=== PATIENT | female | born 1970 | race Caucasian/White ===

== ENCOUNTER 2018-03-26 13:42 | Outpatient (REF) | payer MEDICAID, SELFPAY ==
--- NOTE | 2018-03-26 13:20 | PAPFT_PTH ---
PATIENT: Madelyn Clayton LOC: [facility] U#:[id number] AGE/SX: 47/F ROOM: RE03/26/[address]: Leona Wood : 1970 BED: DIS: 03/26/2018 SPEC #: [id number] RECD: 03/26/18 17:43 STATUS: ALEX RETrace #: [id number] FLOR: 03/26/18 13:[address]: Leona Wood DEPT: [facility] Cytology RECD BY: Luh Sprague ENTERED: 03/26/18 17:43 SP TYPE: PAPFT OTHR DR: Reva Valero Tissues: 1 - CX/ENDOCX FOR PAP SMEARS Procedures: PAP THIN PREP/[facility] Screening HPV DNA PROBE Comments: [id number]
== END 2018-03-26 14:02 ==
LOC: LBN 13:42
PROVIDERS: PCP Nurse Practitioner Family; Visit Provider Obstetrics & Gynecology Gynecology
DX: Z12.4 Encounter for screening for malignant neoplasm of cervix (principal); Z11.51 Encounter for screening for human papillomavirus (HPV)
CPT/HCPCS: 88142; 87624

== ENCOUNTER 2018-06-03 00:57 | Outpatient (CLI) | payer MEDICAID, SELFPAY ==
--- NOTE | 2018-06-03 12:20 | DI.MAMMO_ITS ---
SYMPTOMS/DIAGNOSIS: SCREENING, Z12.31, PREVENTATIVE CARE, Z00.00 BILATERAL SCREENING MAMMOGRAM: Mammograms were interpreted according to the usual protocol including computer analysis with CAD system, tomosynthesis and C view imaging. Comparison is made with exams from 2014 from [facility] and 2016 and 2017 from [facility]. The breasts are composed of heterogeneously dense fibroglandular tissue, breast density category C. A small area of nodularity is again seen in the left breast inferolaterally. No suspicious masses or suspicious microcalcifications are seen in either breast. IMPRESSION: Category 2C, negative mammogram with benign findings. Yearly screening mammography is recommended. SA ASSESSMENT OF FINDINGS: Negative with benign findings. Category 2. Patient will receive a letter notifying them of these results. Bi-RADS category C. The breasts are heterogeneously dense, which may obscure small masses.
== END 2018-06-03 01:17 ==
PROVIDERS: PCP Nurse Practitioner Family; Visit Provider Nurse Practitioner Family
DX: Z12.31 Encounter for screening mammogram for malignant neoplasm of breast (principal); Z00.00 Encounter for general adult medical examination without abnormal findings
CPT/HCPCS: 77063; 77067

== ENCOUNTER 2019-03-29 14:04 | Outpatient (CLI) | payer MEDICAID, SELFPAY ==
[2019-03-30 11:34] LABS: HIV-1/2 Ag & Ab Screen Negative (NEGAT)
[2019-03-30 15:43] LABS: Syphilis Total Ab w/Reflex Nonreactive (Nonreactive)
== END 2019-03-29 14:24 ==
PROVIDERS: PCP Nurse Practitioner Family; Visit Provider Obstetrics & Gynecology Gynecology
DX: Z11.3 Encounter for screening for infections with a predominantly sexual mode of transmission (principal); Z11.4 Encounter for screening for human immunodeficiency virus [HIV]; Z00.00 Encounter for general adult medical examination without abnormal findings
CPT/HCPCS: 36415; 87389; 86780

== ENCOUNTER 2019-03-29 16:11 | Outpatient (REF) | payer MEDICAID, SELFPAY ==
[2019-03-31 13:53] LABS: Chlamydia Result Negative (Negative); GC Result Negative (Negative); Specimen Description CERVIX
== END 2019-03-29 16:31 ==
LOC: LBN 16:11
PROVIDERS: PCP Nurse Practitioner Family; Visit Provider Obstetrics & Gynecology Gynecology
DX: Z11.3 Encounter for screening for infections with a predominantly sexual mode of transmission (principal)
CPT/HCPCS: 87491; 87591

== ENCOUNTER 2019-05-06 12:07 | Outpatient (REF) | payer MEDICAID, SELFPAY ==
[2019-05-06 19:03] LABS: HCT 35.7 % (36.0-46.0); HGB 11.3 g/dL (12.0-15.5); Mean Corp. HGB Concentration 31.7 g/dL (32.0-36.0); Mean Corpuscular Hemoglobin 26.3 pg (27.0-33.0); Mean Platelet Volume 10.1 fL (8.0-11.0); Platelet Count 343 x1000/uL (130-400); RBC Distribution Width 12.6 % (11.7-14.6); White Blood Cell Count 4.14 k/cumm (4.4-10.8)
[2019-05-06 19:21] LABS: ALT 17 U/L (14-59); AST 10 U/L (15-37); Albumin 4.2 g/dL (3.4-5.0); Alkaline Phosphatase 57 U/L (46-116); Anion Gap 9.8 mmol/L (3-11); BUN 10 mg/dL (7-18); Bilirubin, Total 0.4 mg/dL (0.2-1.0); CO2 28.2 mmol/L (21.0-32.0); CREATININE 0.68 mg/dL (0.55-1.02); Calcium 9.1 mg/dL (8.5-10.1); Calculated LDL 150 mg/dL; Chloride 102 mmol/L (98-107); Cholesterol 227 mg/dL (<200); Glucose 85 mg/dL (74-106); HDL Cholesterol 67 mg/dL (40-60); Potassium 4.2 mmol/L (3.5-5.1); Sodium 140 mmol/L (136-145); Total Protein 7.1 g/dL (6.4-8.2); Triglyceride 50 mg/dL (<150)
== END 2019-05-06 12:27 ==
LOC: NCHCN 12:07
PROVIDERS: PCP Nurse Practitioner Family; Visit Provider Nurse Practitioner Family
DX: R53.83 Other fatigue (principal); Z13.220 Encounter for screening for lipoid disorders; Z00.00 Encounter for general adult medical examination without abnormal findings
CPT/HCPCS: 80053; 80061; 85027

== ENCOUNTER 2020-01-26 00:12 | Outpatient (CLI) | payer MEDICAID, SELFPAY ==
--- NOTE | 2020-01-26 | DI.MAMMO_ITS ---
EXAM: MAMMO SCREENING CLINICAL HISTORY: SCREENING, Z12.39 TECHNIQUE: Mammograms were interpreted according to the usual protocol including computer analysis w [employer] CAD system, tomosynthesis and C-view imaging. COMPARISON: FINDINGS: The breasts are heterogeneously dense. No dominant mass or clumped microcalcification is identified in either breast. The current examination is compared with previous examinations including June 03 and there is increased prominence of an area of asymmetric density projected in the central porti on of the left breast on CC and MLO projections. Additional mammographic views of this area are requ ested to include CC and MLO spot compression views of the left breast. No other significant change seen. IMPRESSION: Additional mammographic views of the left breast are requested as described above. Breast ultrasound may be indicated as well depending on the results of the additional mammographic views. BI-RADS Cat 0 - Assessment Incomplete: Need additional imaging evaluation Breast Density - Category C - Heterogeneously dense
== END 2020-01-26 00:32 ==
PROVIDERS: PCP Nurse Practitioner Family; Visit Provider Nurse Practitioner Family
DX: Z12.31 Encounter for screening mammogram for malignant neoplasm of breast (principal); R92.2 Inconclusive mammogram
CPT/HCPCS: 77063; 77067

== ENCOUNTER 2020-02-04 04:15 | Outpatient (CLI) | payer MEDICAID, SELFPAY ==
--- NOTE | 2020-02-04 | DI.US_ITS ---
EXAM: MG MAMMO SCREEN CALL BACK UNI CLINICAL HISTORY: F/U MAMMO, ASYMMETRIC DENSITY LT. TECHNIQUE: Craniocaudal and mediolateral oblique Full Field Digital Mammography views of the left br east with Computer Aided Diagnosis followed by Tomosynthesis and left breast ultrasound. COMPARISON: Comparison with prior examinations. FINDINGS: Mammography/Tomosynthesis: Masses/Architectural Distortion: None seen. Stable nodular density in the posterior left breast. Thi s area has been present on multiple previous examinations and is unchanged. Microcalcifictions: No suspicious pleomorphic-type are seen. Skin Thickening/Nipple Retraction: None. Left breast US: Echotexture: Normal appearance of the glandular tissue. Shadowing: No suspicious foci. Cyst: Cysts are seen at the 8 o'clock and 9 o'clock positions of the left breast. Solid lesions: None seen. Ductal dilation: None. IMPRESSION: 1. No evidence of malignancy is noted. 2. A six-month follow-up left mammogram is recommended for further evaluation. 3. The findings were discussed with the patient on the date of the examination. BI-RADS Category 3 - 6 month - Probably Benign Finding: Recommend follow-up mammography in 6 months Breast Density - Category C - Heterogeneously dense The mammogram demonstrates the patient's breast tissue is dense. Dense breast tissue is very common a nd is not abnormal but dense breast tissue can make it harder to find cancer on a mammogram. Also, de nse breast tissue may increase their breast cancer risk. This information about [facility] was provided to the patient to raise their awareness. Use this report when you speak wi th the patient about their risks for breast cancer, which includes their family history. At that time , you may recommend for more screening tests (Ultrasound or MRI) as they might be useful based on the ir risk. A negative radiographic report should not delay biopsy if a dominant or clinically suspicious mass is present. Up to ten percent of cancers are not identified on mammography. A negative report may reinforce clinical impression. Adenosis and dense breasts may obscure an underlying neoplasm. False positive reports average 6 to 10%. Patient will receive a letter notifying them of these results.
== END 2020-02-04 04:35 ==
PROVIDERS: PCP Nurse Practitioner Family; Visit Provider Nurse Practitioner Family
DX: R92.8 Other abnormal and inconclusive findings on diagnostic imaging of breast (principal); R92.2 Inconclusive mammogram
CPT/HCPCS: 76642; 77063; 77067

== ENCOUNTER 2020-03-03 07:42 | Day surgery (SDC) | payer MEDICAID, SELFPAY ==
[2020-03-03 07:53] VITALS: BP 110/64; PULSE 69; RESP 19; TEMP 36.5; O2SAT 97
[2020-03-03] MEDS: Lactated Ringers 1,000 ML 80 ML IV (08:21)
--- NOTE | 2020-03-03 08:47 | W.PM.DSUDISC ---
Discharge Plan Disposition Patient Disposition: HOME Condition: Good Discharge Details Reason For Visit: Colonoscopy Attending Provider: Yancy Aragon Primary Care Provider: Alexis Melgar Home Meds and New Rx's Prescriptions: Continued phenazopyridine [Pyridium] 200 mg tablet 200 mg PO TID PRNRF: 0 lamotrigine [Lamictal] 25 MG tablet 25 mg PO 3 tabs daily RF: 0 cholecalciferol (vitamin D3) 10,000 UNIT capsule 10,000 unit PO DAILY RF: 0 nitrofurantoin macrocrystal [Macrodantin] 50 mg capsule 50 mg PO DAILY PRN (Reason: UTI prevention) Qty: 30 RF: 12 cyclobenzaprine 5 mg tablet 5 mg PO QHS PRN (Reason: muscle spasm) Qty: 30 RF: 0 docusate sodium [Colace] 100 mg capsule 100 mg PO PRN RF: 0 clonazepam 0.5 mg tablet,disintegrating 0.5 mg PO Q8H PRN Qty: 10 RF: 0 estradiol [Vagifem] 10 mcg tablet 10 mcg VG .COMPLEX Qty: 30 RF: 5 omega-3 fatty acids Capsule 500 mg PO DAILY RF: 0 escitalopram oxalate [Lexapro] 20 mg Tablet 20 mg PO DAILY RF: 0 Discharge Instructions Additional Instructions: Findings: Your colonoscopy was normal. Follow up: Plan for routine screening in 10 years or sooner if symptoms arise. Please call if you develop: fevers >101.5 Nausea or Vomiting Abdominal pain that is not transient DAY SURGERY UNIT POST COLONOSCOPY INSTRUCTIONS 1. Because there will be medication in your system for the next 24 hours, you may feel a little sleepy. Your coordination will be affected. Therefore: a. Do not drive or operate dangerous equipment for 24 hours. b. Do not drink alcohol beverages for 24 hours (not even beer). c. Plan to go home and rest for the day. 2. Generally there are no restrictions on your activity after a day or so has gone by, but you may feel a bit fatigued for a few days. 3 After you arrive home you may have a light meal and return to a normal diet as you can tolerate it without feeling sick to your stomach. 4. After surgery, you may feel pain or discomfort. This should be only transient, but if it persists please contact your doctor. 5. If there are any questions regarding the findings of your procedure, please feel free to contact your doctor. 6. If you are unable to contact your doctor with a problem, contact the hospital at [phone]. 7. Continue all your regular medications unless directed otherwise. I understand the above instructions and have no questions. Signature of Patient or Responsible Adult Escort Date/Time Name of Responsible Adult Escort Signature of Nurse Date/Time Stand Alone Forms: Gail Stark (SUSHILU) Activity:: Activity as Tolerated Diet:: As Tolerated Discharge Orders Discharge Orders: Discharge Order (Routine); Ordered 03/03/20 Ordered By: Yancy Aragon DS: Diagnosis Discharge Diagnosis (1) Normal colonoscopy: Status: Acute
--- NOTE | 2020-03-03 08:48 | W.COLOREPORT ---
Date of service: 03/03/20 Time of Service: 09:41 Colonoscopy Report Date of procedure: 03/03/20 Pre-op diagnosis general: Screening Post-op diagnosis procedure note: other (Normal colon) Procedure: Colonoscopy Surgeon: Yancy Aragon Anesthesia proc note operative: MAC Indications: This 49 year old woman presents for her first colonoscopy. No FH of colon cancer. Chronic IBS symptoms. Procedure Description: The patient was placed in the left Chris position. Propofol was titrated to sedation. Digital rectal examination revealed no abnormalities. The scope was advanced to the cecum without difficulty. The ileocecal valve and appendiceal orifice were clearly identified. The prep was good. The scope was slowly withdrawn over the course of greater than 6 minutes with no abnormalities seen in the ascending, transverse, descending, sigmoid colon or rectum including on retroflexed view. The patient tolerated the procedure well and was stable to recovery. Plan for routine screening colonoscopy in 10 years or sooner if symptoms indicate.
[2020-03-03 09:50] VITALS: BP 89/53; PULSE 56; RESP 16; TEMP 36.6; O2SAT 100
== END 2020-03-03 10:10 | disposition home or self-care (01) ==
PROVIDERS: PCP Nurse Practitioner Family; Visit Provider Surgery
PROC: 0DJD8ZZ Inspection of Lower Intestinal Tract, Via Natural or Artificial Opening Endoscopic (ICD-10-PCS; CPT 45378; principal; 2020-03-03 09:00)
DX: Z12.11 Encounter for screening for malignant neoplasm of colon (principal)
CPT/HCPCS: 45378

== ENCOUNTER 2020-06-05 14:54 | Outpatient (REF) | payer MEDICAID, SELFPAY ==
[2020-06-05 18:37] LABS: HCT 39.9 % (36.0-46.0); HGB 13.2 g/dL (11.2-15.7); MCH 30.1 pg (27.0-33.0); MCHC 33.1 % (32.0-36.0); MCV 91.1 fL (80-95); MPV 10.1 fL (8.0-11.0); Platelet Count 267 10^3/uL (130-400); RBC 4.38 10^6/uL (3.93-5.22); RDW 12.3 % (11.7-14.6); RDW-SD 41.1 fL; WBC 4.06 10^3/uL (4.4-10.8)
[2020-06-05 19:08] LABS: Iron 110 ug/dL (50-170); Total Iron Binding Capacity 359 ug/dL (250-450); Transferrin Sat 31 % (15-50)
[2020-06-05 19:11] LABS: ALT 19 U/L (14-59); AST 15 U/L (15-37); Albumin 4.2 g/dL (3.4-5.0); Alkaline Phosphatase 67 U/L (46-116); Anion Gap 5.4 mmol/L (3-11); BUN 15 mg/dL (7-18); Bilirubin, Total 0.4 mg/dL (0.2-1.0); CO2 31.6 mmol/L (21.0-32.0); CREATININE 0.76 mg/dL (0.55-1.02); Calcium 9.1 mg/dL (8.5-10.1); Chloride 102 mmol/L (98-107); Glucose 79 mg/dL (74-106); Potassium 4.2 mmol/L (3.5-5.1); Sodium 139 mmol/L (136-145); TSH (W/Ref FT4) 1.82 uIU/mL (0.36-3.74); Total Protein 7.2 g/dL (6.4-8.2)
[2020-06-05 19:22] LABS: Vitamin D 25 Total 48.2 ng/ml (30-100)
== END 2020-06-05 15:14 ==
LOC: NCHCN 14:54
PROVIDERS: PCP Nurse Practitioner Family; Visit Provider Nurse Practitioner Family
DX: D64.9 Anemia, unspecified (principal); R53.83 Other fatigue; G47.00 Insomnia, unspecified
CPT/HCPCS: 80053; 82306; 85027; 83540; 83550; 84443

== ENCOUNTER 2020-06-28 01:21 | Outpatient (CLI) | payer MEDICAID, SELFPAY ==
--- NOTE | 2020-06-28 15:07 | DI.RAD_ITS ---
EXAM: XR KNEE RT 3V AP,LAT,EH CLINICAL HISTORY: ACUTE RT KNEE PAIN, M25.561. TECHNIQUE: 2D digital imaging was performed. COMPARISON: CR XR KNEE LT 3V AP,LAT,EH from 06/28/2020 FINDINGS: BONES: No acute fracture is present. No bony destructive lesion is seen. JOINTS: The knee is normally aligned. No joint effusion is seen. The joint spaces are well maintained . There is minimal periarticular spurring. SOFT TISSUE: Rounded calcifications in the lateral soft tissues, otherwise normal. IMPRESSION: Minimal degenerative changes. DATA REPOSITORY: RADIATION DOSE DELIVERED:
--- NOTE | 2020-06-28 15:07 | DI.RAD_ITS ---
EXAM: XR KNEE LT 3V AP,LAT,EH CLINICAL HISTORY: ACUTE LT KNEE PAIN, M25.562. TECHNIQUE: 2D digital imaging was performed. COMPARISON: No exams were available for comparison FINDINGS: BONES: No acute fracture is present. No bony destructive lesion is seen. JOINTS: The knee is normally aligned. No joint effusion is seen. There is minimal periarticular spurr ing. The joint spaces are well maintained. SOFT TISSUE: Normal. IMPRESSION: Minimal degenerative changes. DATA REPOSITORY: RADIATION DOSE DELIVERED:
== END 2020-06-28 01:41 ==
PROVIDERS: PCP Nurse Practitioner Family; Visit Provider Nurse Practitioner Family
DX: M17.0 Bilateral primary osteoarthritis of knee (principal)
CPT/HCPCS: 73562

== ENCOUNTER 2020-09-15 10:34 | Observation (INO) | payer MEDICAID, SELFPAY ==
[2020-09-15] VITALS (59 sets, daily range): BP systolic 101–126; BP diastolic 47–78; PULSE 57–86; RESP 11–25; TEMP 36.3–37.1; O2SAT 93–100
--- NOTE | 2020-09-15 10:30 | RT.EKG_ITS ---
APPROVED REPORT Exam: Resting ECG Patient Location: E HR:70 bpm ECG Measurements Heart Rate [address] 147 P 69 QRSd 87 QRS 89 QT 391 T 57 QTc 424 Conclusion Sinus rhythm...normal P axis, V-rate 60- 99
[2020-09-15] MEDS: Normal Saline Flush 10 ML SYR IVP (11:17)
[2020-09-15 11:32] LABS: Abs Immature Grans 0.01 10^3/uL (0.0-0.06); Absolute Basophil Count 0.02 10^3/uL (0.0-0.2); Absolute Lymphocyte Count 1.11 10^3/uL (1.2-3.4); Absolute Monocyte Count 0.43 10^3/uL (0.1-0.8); Absolute Neutrophil Count 1.87 10^3/uL (1.2-6.7); Basophils % 0.6; Eosinophils % 2.8; HCT 37.3 % (36.0-46.0); HGB 12.7 g/dL (11.2-15.7); Immature Grans % 0.3; Lymphocytes % 31.4; MCH 30.5 pg (27.0-33.0); MCV 89.4 fL (80-95); MPV 9.9 fL (8.0-11.0); Monocytes % 12.1; Neutrophils % 52.8; Nucleated RBC 0 %; Platelet Count 244 10^3/uL (130-400); RBC 4.17 10^6/uL (3.93-5.22); RDW 12.1 % (11.7-14.6); RDW-SD 39.6 fL; WBC 3.54 10^3/uL (4.4-10.8)
[2020-09-15 11:34] LABS: Source Nasal/Nares
[2020-09-15 11:41] LABS: PTT Activated 24.6 sec (21.0-27.5)
[2020-09-15 11:42] LABS: ALT 18 U/L (14-59); AST 11 U/L (15-37); Albumin 3.8 g/dL (3.4-5.0); Alkaline Phosphatase 69 U/L (46-116); Anion Gap 8.9 mmol/L (3-11); BUN 12 mg/dL (7-18); Bilirubin, Total 0.5 mg/dL (0.2-1.0); CO2 29.1 mmol/L (21.0-32.0); CREATININE 0.8 mg/dL (0.55-1.02); Calcium 8.6 mg/dL (8.5-10.1); Chloride 104 mmol/L (98-107); Glucose 89 mg/dL (74-106); Potassium 3.9 mmol/L (3.5-5.1); Sodium 142 mmol/L (136-145)
[2020-09-15 11:43] LABS: Troponin I < 0.05 ng/mL (<0.06)
[2020-09-15 12:28] LABS: COVID-19 PCR Negative (Negative)
--- NOTE | 2020-09-15 12:30 | DI.CT_ITS ---
EXAM: CT THORAX ABDOMEN CTA CLINICAL HISTORY: chest pain radiating top back. TECHNIQUE: Imaging Protocol: Axial CT angiography was performed with multi-slice acquisition and m ulti-planar and/or 3D reconstructions. CONTRAST MATERIAL: Intravenous: Omnipaque 350 Contrast volume:100 mL Oral: No COMPARISON: No exams were available for comparison FINDINGS: CHEST: Tracheobronchial tree: Patent where visualized. Pulmonary parenchyma: No consolidation or dominant measurable mass. Scarring in the right middle lobe . Pulmonary Arteries: No evidence of filling defect to suggest pulmonary emboli. Mediastinum and Nell: No dominant adenopathy or fluid collection. Visualized thyroid: Unremarkable. Pleura: No effusion or pneumothorax. Heart: The heart is not dilated. No coronary artery calcifications are seen. No pericardial effusion. Aorta: Thoracic aorta non-dilated. Mild atherosclerosis. No dissection. Soft Tissues: Unremarkable. Bones: Mild degenerative changes in the spine. ABDOMEN AND PELVIS: Abdomen: Celiac axis/mesenteric arteries: No evidence of occlusion or significant stenosis. Renal Arteries: No evidence of occlusion or significant stenosis. There is a single renal artery per fusing each kidney. Aorta: No evidence of occlusion or significant stenosis. No aneurysm or dissection. Mild atheroscl erosis. Iliac Arteries: No evidence of occlusion or significant stenosis. ABDOMEN: Liver: Normal density. There is a 0.6 cm enhancing lesion in the posterior segment of the right lobe of the liver. It is isodense to the aorta and likely reflects a hepatic hemangioma. There is a 2.6 cm lesion in the posterior segment of the right lower of the liver which shows nodular enhancement wh ich is isodense to the aorta and likely reflects a hepatic hemangioma. A dedicated hemangioma protoc ol CT scan of the liver may be obtained for further evaluation. Portal, Superior Mesenteric, and Splenic Veins: Unremarkable. Gallbladder and Biliary Tract: No radiodense calculus or dilation. Pancreas: Normal density, no abnormal calcifications or inflammatory process. Spleen: Normal. Adrenals: No masses seen. Kidneys: Normal size, contour and axis. No radiodense stones or obstructive uropathy. No masses seen. Bowel: No obstruction or bowel wall thickening. Peritoneal Cavity: No ascites, collection or mesenteric inflammatory response. No free air. Lymph Nodes: Within normal limits. Bones: Within normal limits. Soft Tissues: Unremarkable. IMPRESSION: No evidence of thoracic or abdominal aneurysm or dissection. Results of this exam have been verbally communicated with provider. Complete RADIATION DOSE DELIVERED: 464.67mGy.cm Total DLP DATA REPOSITORY: All CT scans at this facility are submitted to the National Radiology Data Registry (NRDR) Dose Index Registry (DIR) with the [employer] ([employer]). RADIATION OPTIMIZATION: All CT scans at this facility use at least one of these dose optimization te chniques: automated exposure control; mA and/or kV adjustment per patient size (includes targeted exa ms where dose is matched to clinical indication); or iterative reconstruction.
[2020-09-15 13:02] LABS: NT-proBNP 99 pg/mL (<300)
[2020-09-15] MEDS: Normal Saline - Diluent 50 ML VIAL IV (13:33)
[2020-09-15 13:57] LABS: Lipase 130 U/L (73-393)
[2020-09-15] MEDS: FAMOTIDINE 20 MG/50 ML BAG 200 MG IVPB (14:05)
[2020-09-15] MEDS: Mylanta Suspension 30 ML CUP PO (14:05)
[2020-09-15 14:28] LABS: Troponin I < 0.05 ng/mL (<0.06)
--- NOTE | 2020-09-15 14:38 | W.ED.GENAD ---
Discharge Plan Disposition Patient Disposition: [facility] INPATIENT Condition: Good Discharge Details Clinical Impression: Chest pain Admit Date/Time: 09/15/20 15:06 Admit Provider: Ellie Davey Attending Provider: Ellie Davey Primary Care Provider: Alexis Melgar ED Provider: Clayton Ruffin Discharge Data Discharge Date/Time-TO BE ENTERED AT DEPARTURE: 09/15/20 16:30 Medical Decision Making 60-year-old female with positive family history for coronary artery disease, smoking history, here with concerning chest pain since last night. Low BP. ECG was reviewed and interpreted by me: Sinus rhythm 70 bpm, normal axis, no STEMI. Initial troponin negative. Initial troponin negative and second troponin at 3 hours negative. I considered CHF as patient does have chest discomfort, shortness of breath and dyspnea on exertion. BNP normal. Pain is radiating to her back intermittently and centrally located in her chest. Considered acute life-threatening aortic dissection. CT of the chest and abdomen interpreted by radiology: IMPRESSION: No evidence of thoracic or abdominal aneurysm or dissection. Results of this exam have been verbally communicated with provider. Covid testing negative. Patient patient was given Pepcid 20 mg and Mylanta. Patient reassessed and notes continued mild discomfort and continued sensation that she just generally does not feel well. We will give aspirin 325 mill Calculated HEART score 4. Plan will be for hospitalization for continued telemetry monitoring and serial troponin. Patient is agreeable with plan I called and spoke with the hospitalist Dr. Davey And discussed ED presentation and course including diagnostics. She was admit the patient. Care transitioned to Dr. Davey at time of admission. Bridging orders placed to floor. Suspect GI etiology but cardiac remains a concern. -- Patient was reassessed and continues to complain of central chest squeezing - SBP 105. Will give LR 500mL bolus and plan on nitro SL. HPI General Mode of arrival: ambulatory. Date/Time Provider Initiated Documentation: 09/15/20 11:09. Limitations to Documentation: no limitations. Information obtained by: patient. HPI Narrative: 60-year-old female with history of interstitial cystitis, positive family history for coronary artery disease, smoking history, questionable hyperlipidemia untreated, here with chief complaint of chest pain. Patient notes that pain started last night, gradually getting worse, severe earlier today and now mild, described as pressure in her central chest radiating to her neck and intermittently to her back. She has associated shortness of breath that she describes as intermittently hard to breath and trouble catching her breath with exertion. She notes that she generally just does not feel well. Patient does note she took some Pepcid last night which did not really help her symptoms. She notes the pain did wake her up from sleep. She states pain seems worse after eating and with certain positions including lying back. Related Data Home Medications Medication Instructions Recorded Confirmed lamotrigine [Lamictal] 25 mg PO 3 tabs daily 02/15/15 09/15/20 cholecalciferol (vitamin D3) 10,000 unit PO DAILY 09/25/16 09/15/20 nitrofurantoin macrocrystal 50 mg 50 mg PO DAILY PRN #30 cap 04/10/18 09/15/20 capsule phenazopyridine 200 mg tablet 200 mg PO TID PRN tab-cap 07/03/18 09/15/20 cyclobenzaprine 5 mg tablet 5 mg PO QHS PRN #30 tab 11/10/18 09/15/20 docusate sodium 100 mg capsule 100 mg PO PRN cap 06/29/19 09/15/20 estradiol 10 mcg vaginal tablet 10 mcg VG .COMPLEX #30 tab 02/09/20 09/15/20 escitalopram oxalate [Lexapro] 20 mg PO DAILY 03/02/20 09/15/20 omega-3 fatty acids 500 mg PO DAILY 03/02/20 09/15/20 clonazepam 0.5 mg disintegrating 0.5 mg PO Q8H PRN #10 tab-cap 04/05/20 09/15/20 tablet famotidine 20 mg PO BID #60 tab 09/16/20 lidocaine HCl [Lidocaine Viscous] 1 applic MUCOUS MEMBRANE BID PRN 09/16/20 #100 ml Previous Rx's Medication Instructions Recorded nitrofurantoin macrocrystal 50 mg 50 mg PO DAILY PRN #30 cap 04/10/18 capsule cyclobenzaprine 5 mg tablet 5 mg PO QHS PRN #30 tab 11/10/18 estradiol 10 mcg vaginal tablet 10 mcg VG .COMPLEX #30 tab 02/09/20 clonazepam 0.5 mg disintegrating 0.5 mg PO Q8H PRN #10 tab-cap 04/05/20 tablet famotidine 20 mg PO BID #60 tab 09/16/20 lidocaine HCl [Lidocaine Viscous] 1 applic MUCOUS MEMBRANE BID PRN 09/16/20 #100 ml Allergies Allergy/AdvReac Type Severity Reaction Status Date / Time erythromycin base AdvReac headache/na Verified 09/15/20 10:41 usea Sulfa (Sulfonamide AdvReac nausea/head Verified 09/15/20 10:41 Antibiotics) ache General Stated Complaint: Chest Pain KIAH: 2 Review of Systems All systems reviewed & are unremarkable except as noted in HPI and below Constitutional Constitutional: Denies fever(s) Cardiovascular Cardiovascular: Reports as per HPI, Reports chest pain, Denies irregular heart rhythm and Reports dyspnea Respiratory Respiratory: Reports dyspnea Gastrointestinal Gastrointestinal: Reports nausea and Denies vomiting [facility] Medical History Alcohol abuse per referral note pt goes to AA 3-4 times a week, sober for 23 years Anemia Anxiety associated with depression Anxiety with flying uses Clonopin PRN. Arm pain, right Bunion of unspecified foot Cervicalgia Chronic fatigue Depression stable on SSRI. Lamictal added after cervical neck fusion. Fear of flying Hearing loss History of alcohol use disorder clean and sober for years. History of IBS IBS (irritable bowel syndrome) Leg cramps Mammogram abnormal Menorrhagia 01/2015 resulting in anemia. 01/2016 bleeding has improved. Nl pelvic u/s. Microcytic anemia 01/2015. Resolved with supplemental iron. Normal colonoscopy (~03/2020) Right hip pain Surgical History cervical neck fusion section x3. Family History Mother , dementia at age 72. Myocardial infarction Father Myocardial infarction Brother Myocardial infarction Social History Smoking/Tobacco Use Status: Current every day Tobacco Type: e-cigarettes Smoking risk assessment performed?: Yes Alcohol Intake: former Drug use: Current Sobriety Substance use type: does not use Counseling provided: other Details: Sober 25 years Household members: family and other Details: Kareem ni Treviño,Morgan Felipe Housing: other Details: [employer] Number of Children: 3 Education Level: college Details: online student for [employer] masters. 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 is sponsor for several new members. Female Reproductive History Menstrual control method: none History History 6 Para 3 Hx # Term Pregnancies 3 Multiple births Hx # Pregnancies Ectopic pregnancies AB induced Hx Number of Living Children AB spontaneous Exam Const General: cooperative and no acute distress HENMT Mouth: moist mucous membranes Eyes Conjunctivae: normal conjunctivae Sclera: normal sclerae Neck Neck: trachea midline, supple and no JVD Resp Auscultation: clear to auscultation bilaterally, no rales, no rhonchi and no wheezes Cardio Rate: regular rate and not tachycardic Rhythm: regular rhythm GI Palpation: soft, not firm, no guarding, no masses, not rigid and nontender Skin General skin exam: no rashes or lesions noted Neuro General: patient alert, patient awake, patient oriented x3 and tone normal Extrem General: no calf tenderness and no edema Psych Appearance: grossly normal Mental Status: mental status grossly normal Speech and Movement: speech and movement normal Course Vital Signs Vital signs: Vital Signs Temperature 36.9 C 09/15/20 10:37 Pulse 79 09/15/20 10:37 Respiratory Rate 16 09/15/20 10:37 Blood Pressure 120/64 09/15/20 10:37 Pulse Oximetry 96 09/15/20 10:37 Temperature 36.9 C 09/15/20 10:37 Temperature Source Skin 09/15/20 10:37 Pulse 61 09/15/20 14:00 Pulse 62 09/15/20 14:20 Respiratory Rate 16 09/15/20 14:20 Respiratory Effort 09/15/20 10:49 Respiratory Depth Normal 09/15/20 10:49 Respiratory Pattern Normal 09/15/20 10:49 Blood Pressure 113/63 09/15/20 14:00 Blood Pressure Mean 74 09/15/20 14:00 Blood Pressure Position Sitting 09/15/20 10:37 Pulse Oximetry 98 09/15/20 14:20 Oxygen Delivery Method Room Air 09/15/20 10:37 Oxygen Flow Rate 0 09/15/20 10:37 Pain Level 7 09/15/20 14:05 Lab/Test Results Lab/Test Results: Laboratory Tests Range/Units 09/15/20 09/15/20 09/15/20 10:44 10:44 10:44 WBC (4.4-10.8) 10^3/uL 3.54 L RBC (3.93-5.22) 10^6/uL 4.17 Hgb (11.2-15.7) g/dL 12.7 Hct (36.0-46.0) % 37.3 MCV (80-95) fL 89.4 MCH (27.0-33.0) pg 30.5 MCHC (32.0-36.0) % 34.0 RDW (11.7-14.6) % 12.1 Plt Count (130-400) 10^3/uL 244 MPV (8.0-11.0) fL 9.9 Immature Gran % 0.3 Neutrophils % 52.8 Lymphocytes % 31.4 Monocytes % 12.1 Eosinophils % 2.8 Basophils % 0.6 Nucleated RBC % % 0 Absolute Neutrophils (1.2-6.7) 10^3/uL 1.87 Absolute Lymphocytes (1.2-3.4) 10^3/uL 1.11 L Absolute Monocytes (0.1-0.8) 10^3/uL 0.43 Absolute Eosinophils (0.0-0.7) 10^3/uL 0.10 Absolute Basophils (0.0-0.2) 10^3/uL 0.02 APTT (21.0-27.5) sec 24.6 Sodium (136-145) mmol/L 142 Potassium (3.5-5.1) mmol/L 3.9 Chloride (98-107) mmol/L 104 Carbon Dioxide (21.0-32.0) mmol/L 29.1 Anion Gap (3-11) mmol/L 8.9 BUN (7-18) mg/dL 12 Creatinine (0.55-1.02) mg/dL 0.8 Estimated GFR/1.73 m2 (mL/min/1.73m2) >= 60.00 Glucose (74-106) mg/dL 89 Calcium (8.5-10.1) mg/dL 8.6 Total Bilirubin (0.2-1.0) mg/dL 0.5 AST (15-37) U/L 11 L ALT (14-59) U/L 18 Alkaline Phosphatase (46-116) U/L 69 Troponin I (<0.06) ng/mL < 0.05 NT-Pro-B Natriuret Pep (<300) pg/mL Total Protein (6.4-8.2) g/dL 7.0 Albumin (3.4-5.0) g/dL 3.8 Lipase (73-393) U/L COVID-19 Source SARS-CoV-2 (PCR) (Negative) Range/Units 09/15/20 09/15/20 09/15/20 10:44 10:44 11:22 WBC (4.4-10.8) 10^3/uL RBC (3.93-5.22) 10^6/uL Hgb (11.2-15.7) g/dL Hct (36.0-46.0) % MCV (80-95) fL MCH (27.0-33.0) pg MCHC (32.0-36.0) % RDW (11.7-14.6) % Plt Count (130-400) 10^3/uL MPV (8.0-11.0) fL Immature Gran % Neutrophils % Lymphocytes % Monocytes % Eosinophils % Basophils % Nucleated RBC % % Absolute Neutrophils (1.2-6.7) 10^3/uL Absolute Lymphocytes (1.2-3.4) 10^3/uL Absolute Monocytes (0.1-0.8) 10^3/uL Absolute Eosinophils (0.0-0.7) 10^3/uL Absolute Basophils (0.0-0.2) 10^3/uL APTT (21.0-27.5) sec Sodium (136-145) mmol/L Potassium (3.5-5.1) mmol/L Chloride (98-107) mmol/L Carbon Dioxide (21.0-32.0) mmol/L Anion Gap (3-11) mmol/L BUN (7-18) mg/dL Creatinine (0.55-1.02) mg/dL Estimated GFR/1.73 m2 (mL/min/1.73m2) Glucose (74-106) mg/dL Calcium (8.5-10.1) mg/dL Total Bilirubin (0.2-1.0) mg/dL AST (15-37) U/L ALT (14-59) U/L Alkaline Phosphatase (46-116) U/L Troponin I (<0.06) ng/mL NT-Pro-B Natriuret Pep (<300) pg/mL 99 Total Protein (6.4-8.2) g/dL Albumin (3.4-5.0) g/dL Lipase (73-393) U/L 130 COVID-19 Source Nasal/nares SARS-CoV-2 (PCR) (Negative) Negative Range/Units 09/15/20 14:03 WBC (4.4-10.8) 10^3/uL RBC (3.93-5.22) 10^6/uL Hgb (11.2-15.7) g/dL Hct (36.0-46.0) % MCV (80-95) fL MCH (27.0-33.0) pg MCHC (32.0-36.0) % RDW (11.7-14.6) % Plt Count (130-400) 10^3/uL MPV (8.0-11.0) fL Immature Gran % Neutrophils % Lymphocytes % Monocytes % Eosinophils % Basophils % Nucleated RBC % % Absolute Neutrophils (1.2-6.7) 10^3/uL Absolute Lymphocytes (1.2-3.4) 10^3/uL Absolute Monocytes (0.1-0.8) 10^3/uL Absolute Eosinophils (0.0-0.7) 10^3/uL Absolute Basophils (0.0-0.2) 10^3/uL APTT (21.0-27.5) sec Sodium (136-145) mmol/L Potassium (3.5-5.1) mmol/L Chloride (98-107) mmol/L Carbon Dioxide (21.0-32.0) mmol/L Anion Gap (3-11) mmol/L BUN (7-18) mg/dL Creatinine (0.55-1.02) mg/dL Estimated GFR/1.73 m2 (mL/min/1.73m2) Glucose (74-106) mg/dL Calcium (8.5-10.1) mg/dL Total Bilirubin (0.2-1.0) mg/dL AST (15-37) U/L ALT (14-59) U/L Alkaline Phosphatase (46-116) U/L Troponin I (<0.06) ng/mL < 0.05 NT-Pro-B Natriuret Pep (<300) pg/mL Total Protein (6.4-8.2) g/dL Albumin (3.4-5.0) g/dL Lipase (73-393) U/L COVID-19 Source SARS-CoV-2 (PCR) (Negative)
[2020-09-15] MEDS: Aspirin 325 MG TAB PO (15:25)
[2020-09-15] MEDS: Lactated Ringers 500 ML 1000 ML IV (15:26)
[2020-09-15] MEDS: lamoTRIgine 25 MG TAB 75 MG PO (17:18)
[2020-09-15] MEDS: Escitalopram 20 MG TAB PO (17:18)
--- NOTE | 2020-09-15 17:25 | W.PM.HP.N ---
Date of service: 09/15/20 Time of Service: 17:25 Assessment and Plan Assessment and plan (1) Chest pain: Start date: 09/15/20 Start time: 17:38 Status: Acute Assessment and plan: This is likely not cardiac related d/t worse after eating and lying down. EKG without ectopic beats and ST elevation. Trops negative Will observe overnight on teley Likely GI in nature will give Pepcid BID due to interaction of medication Will also trial mylanta and lidocaine Likely discharge in am. Qualifiers: Chest pain type: other chest pain Qualified Code(s): R07.89 - Other chest pain (2) Depression: Start date: 09/15/20 Start time: 17:41 Status: Acute Assessment and plan: Continue depression medication above case discusssed with Dr. Davey who is in agreement. Qualifiers: Depression Type: unspecified Qualified Code(s): F32.9 - Major depressive disorder, single episode, unspecified History of Present Illness History of Present Illness Chief Complaint: CP Narrative: 50 y.o female with PMH Depression, anxiety, presents to [facility] ED with c/o chest pressure onset last night intermittent that radiates to back and neck. She states pain is worse at night and after eating and with lying on her back. Work in the ED unremarkable. Troponins flat negative. CTA no evidence of thoracic or abdominal aneurysm or dissection. She was given famotidine with little relief. Hospitalists were asked to admit for overnight observation. She will be admitted to m/s telemetry for further management. Will give pepcid BID, mylanta and lidocaine, likely GERD or esophageal spasms. EKG in ED without any ectopic beat or ST elevation. Likely discharge in am. Review of Systems All systems reviewed & are unremarkable except as noted in HPI and below [facility] Medical History Alcohol abuse per referral note pt goes to AA 3-4 times a week, sober for 23 years Anemia Anxiety associated with depression Anxiety with flying uses Clonopin PRN. Arm pain, right Bunion of unspecified foot Cervicalgia Chronic fatigue Depression stable on SSRI. Lamictal added after cervical neck fusion. Fear of flying Hearing loss History of alcohol use disorder clean and sober for years. History of IBS IBS (irritable bowel syndrome) Leg cramps Mammogram abnormal Menorrhagia 01/2015 resulting in anemia. 01/2016 bleeding has improved. Nl pelvic u/s. Microcytic anemia 01/2015. Resolved with supplemental iron. Normal colonoscopy (~03/2020) Right hip pain Surgical History cervical neck fusion section x3. Family History Mother , dementia at age 72. Myocardial infarction Father Myocardial infarction Brother Myocardial infarction Social History Smoking/Tobacco Use Status: Current every day Tobacco Type: e-cigarettes Smoking risk assessment performed?: Yes Alcohol Intake: former Drug use: Current Sobriety Substance use type: does not use Counseling provided: other Details: Sober 25 years Household members: family and other Details: Matteo King [place] Housing: other Details: [employer] Number of Children: 3 Education Level: college Details: online student for [employer] masters. 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 is sponsor for several new members. Female Reproductive History Menstrual control method: none History History 6 Para 3 Hx # Term Pregnancies 3 Multiple births Hx # Pregnancies Ectopic pregnancies AB induced Hx Number of Living Children AB spontaneous Meds Allergies and Home Medications Allergies Allergy/AdvReac Type Severity Reaction Status Date / Time erythromycin base AdvReac headache/na Verified 09/15/20 10:41 usea Sulfa (Sulfonamide AdvReac nausea/head Verified 09/15/20 10:41 Antibiotics) ache Home Medications Medication Instructions Recorded Confirmed Type lamotrigine [Lamictal] 25 mg PO 3 tabs daily 02/15/15 09/15/20 History cholecalciferol (vitamin D3) 10,000 unit PO DAILY 09/25/16 09/15/20 History nitrofurantoin macrocrystal 50 mg 50 mg PO DAILY PRN #30 cap 04/10/18 09/15/20 Rx capsule phenazopyridine 200 mg tablet 200 mg PO TID PRN tab-cap 07/03/18 09/15/20 History cyclobenzaprine 5 mg tablet 5 mg PO QHS PRN #30 tab 11/10/18 09/15/20 Rx docusate sodium 100 mg capsule 100 mg PO PRN cap 06/29/19 09/15/20 History estradiol 10 mcg vaginal tablet 10 mcg VG .COMPLEX #30 tab 02/09/20 09/15/20 Rx escitalopram oxalate [Lexapro] 20 mg PO DAILY 03/02/20 09/15/20 History omega-3 fatty acids 500 mg PO DAILY 03/02/20 09/15/20 History clonazepam 0.5 mg disintegrating 0.5 mg PO Q8H PRN #10 tab-cap 04/05/20 09/15/20 Rx tablet Exam Narrative Exam Narrative: Const: Middle aged female laying on bed, AAOx 3. cooperative and no acute distress Mouth: moist mucous membranes Conjunctivae: normal conjunctivae Sclera: normal sclerae Neck: trachea midline, supple and no JVD Resp clear to auscultation bilaterally, no rales, no rhonchi and no wheezes Cardio regular rate and not tachycardic: regular rhythm GI: Palpation: soft, not firm, no guarding, no masses, not rigid and nontender Skin: no rashes or lesions noted Neuro patient alert, patient awake, patient oriented x3 and tone normal Extrem no calf tenderness and no edema Psych: Appearance: grossly normal Mental Status: mental status grossly normal Speech and Movement: speech and movement normal Results Labs Result diagrams: 09/15/20 10:44 09/15/20 10:44 Labs: Laboratory Results - last 24 hr 09/15/20 09/15/20 09/15/20 10:44 10:44 10:44 WBC 3.54 L RBC 4.17 Hgb 12.7 Hct 37.3 MCV 89.4 MCH 30.5 MCHC 34.0 RDW 12.1 Plt Count 244 MPV 9.9 Immature Gran % 0.3 Neutrophils % 52.8 Lymphocytes % 31.4 Monocytes % 12.1 Eosinophils % 2.8 Basophils % 0.6 Nucleated RBC % 0 Absolute Neutrophils 1.87 Absolute Lymphocytes 1.11 L Absolute Monocytes 0.43 Absolute Eosinophils 0.10 Absolute Basophils 0.02 APTT 24.6 Sodium 142 Potassium 3.9 Chloride 104 Carbon Dioxide 29.1 Anion Gap 8.9 BUN 12 Creatinine 0.8 Estimated GFR/1.73 m2 >= 60.00 Glucose 89 Calcium 8.6 Total Bilirubin 0.5 AST 11 L ALT 18 Alkaline Phosphatase 69 Troponin I < 0.05 NT-Pro-B Natriuret Pep Total Protein 7.0 Albumin 3.8 Lipase COVID-19 Source SARS-CoV-2 (PCR) 09/15/20 09/15/20 09/15/20 10:44 10:44 11:22 WBC RBC Hgb Hct MCV MCH MCHC RDW Plt Count MPV Immature Gran % Neutrophils % Lymphocytes % Monocytes % Eosinophils % Basophils % Nucleated RBC % Absolute Neutrophils Absolute Lymphocytes Absolute Monocytes Absolute Eosinophils Absolute Basophils APTT Sodium Potassium Chloride Carbon Dioxide Anion Gap BUN Creatinine Estimated GFR/1.73 m2 Glucose Calcium Total Bilirubin AST ALT Alkaline Phosphatase Troponin I NT-Pro-B Natriuret Pep 99 Total Protein Albumin Lipase 130 COVID-19 Source Nasal/nares SARS-CoV-2 (PCR) Negative 09/15/20 14:03 WBC RBC Hgb Hct MCV MCH MCHC RDW Plt Count MPV Immature Gran % Neutrophils % Lymphocytes % Monocytes % Eosinophils % Basophils % Nucleated RBC % Absolute Neutrophils Absolute Lymphocytes Absolute Monocytes Absolute Eosinophils Absolute Basophils APTT Sodium Potassium Chloride Carbon Dioxide Anion Gap BUN Creatinine Estimated GFR/1.73 m2 Glucose Calcium Total Bilirubin AST ALT Alkaline Phosphatase Troponin I < 0.05 NT-Pro-B Natriuret Pep Total Protein Albumin Lipase COVID-19 Source SARS-CoV-2 (PCR) Last Vital Signs Temp 37.1 C 09/15/20 16:01 Pulse 70 09/15/20 16:56 Resp 14 09/15/20 16:01 BP 126/71 09/15/20 17:06 Pulse Ox 97 09/15/20 16:01 COVID-19 Screening Have you, or household traveled for leisure in last 14 days?: No Had IN PERSON contact w/suspected or confirmed C-19 person: No
[2020-09-15] MEDS: clonazePAM 0.5 MG TAB PO (19:31)
[2020-09-15] MEDS: Famotidine 20 MG TAB PO (19:31)
[2020-09-16] VITALS: BP 105/80; PULSE 64; RESP 17; TEMP 36.6; O2SAT 96
[2020-09-16 03:50] VITALS: BP 98/74; PULSE 61; RESP 16; TEMP 36.5; O2SAT 96
[2020-09-16 07:27] VITALS: PULSE 76
[2020-09-16 07:29] VITALS: BP 103/64; PULSE 60; RESP 18; TEMP 36.4; O2SAT 97
[2020-09-16] MEDS: Cholecalciferol (Vitamin D3) 1,000 UNIT TAB 5000 UNITS PO (08:23)
[2020-09-16] MEDS: Escitalopram 20 MG TAB PO (08:24)
[2020-09-16] MEDS: lamoTRIgine 25 MG TAB 75 MG PO (08:24)
[2020-09-16] MEDS: Famotidine 20 MG TAB PO (08:24)
--- NOTE | 2020-09-16 08:50 | INITIAL_ITS ---
- If Service Date Differs Date of service: 09/16/20 Time of Service: 08:50 Care Management Initial Assess REASON FOR HOSPITALIZATION:: Chest Pain PAST MEDICAL HISTORY/PAST SURGICAL HISTORY:: Medical History . Alcohol abuse. per referral note pt goes to AA 3- 4 times a week, sober for 23 years. Anemia. Anxiety associated with depression. Anxiety with flying. uses Clonopin PRN. Arm pain, right. Bunion of unspecified foot. Cervicalgia. Chronic fatigue. Depression. stable on SSRI. Lamictal added after cervical neck fusion. Fear of flying. Hearing loss. History of alcohol use disorder. clean and sober for years. History of IBS. IBS (irritable bowel syndrome). Leg cramps. Mammogram abnormal. Menorrhagia. 01/2015 resulting in anemia. 01/2016 bleeding has improved. Nl pelvic u/s. Microcytic anemia. 01/2015. Resolved with supplemental iron. Normal colonoscopy (~03/2020). Right hip pain. Surgical History . cervical neck fusion. section. x3. PREVIOUS FUNCTIONAL STATUS/SOCIAL/FAMILY SUPPORTS:: Madelyn lives in [place], [place] with her Kareem. CURRENT FUNCTIONAL STATUS:: Madelyn was discharged before was able to meet with her. ADVANCE DIRECTIVES:: none on file CODE STATUS:: Full Code INSURANCE COVERAGE / FINANCIAL ISSUES:: Medicaid PRIMARY CARE PHYSICIAN:: Alexis Melgar POTENTIAL DISCHARGE NEEDS:: Follow up with PCP, Cardiology and plan of care PATIENT/FAMILY EDUCATION NEEDS:: Review of discharge instructions, ,medications, limitations, follow up plan, Ask Me Three TRANSPORTATION:: via private vehicle with family PLAN:: Madelyn will be discharged home with no new services. She will follow up with her community providers and transport with family
--- NOTE | 2020-09-16 08:52 | DSE_ITS ---
Date of service: 09/16/20 Time of Service: 08:52 DS: Diagnosis Discharge Diagnosis (1) Chest pain: Start date: 09/16/20 Start time: 08:59 Status: Ruled-out Asessment and Plan: Patient was admitted overnight for teley obs. She was r/o for cardiac, this does appear to be GI related. After receiving a GI cocktail and pepcid BID. The pain has since gone away. She has been able to eat dinner and lunch without any pain. She is being sent home on Pepcid and mylanta and lidocaine Follow up with PCP when she can (2) Depression: Start date: 09/16/20 Start time: 09:34 Status: Acute Asessment and Plan: Continue home medications above case discussed with Dr. Patel who is in agreement Discharge Plan Disposition Patient Disposition: HOME Condition: Good Discharge Details Reason For Visit: CHEST PAIN Admit Date/Time: 09/15/20 15:06 Admit Provider: Ellie Davey Attending Provider: Ellie Davey Primary Care Provider: Alexis Melgar Hospital Course Hospital Course: 50 y.o female with PMH Depression, anxiety, presents to [facility] ED with c/o chest pressure waking her up at night nights prior to her being admitted. Pain was intermittent that radiated to her back and neck. She stated pain was worse at night and after eating and with lying on her back. Work up in the ED was unremarkable. Troponins were flat negative. CTA no evidence of thoracic or abdominal aneurysm or dissection. She was given famotidine with little relief. Hospitalists were asked to admit for overnight observation. EKG was normal with no SVT elevations or ectopic beats. She was admitted given Pepcid BID, mylanta and lidocaine po. Her symptoms resolved and she was able to eat dinner without any discomfort and this morning she feels great. She states she slept through the night and was able to eat. She is being discharged home on bid pepcid. Follow up with PCP when available. Home Meds and New Rx's Prescriptions: New Lidocaine Viscous 2 % solution 1 applic mucous membrane BID PRNQty: 100 RF: 0 famotidine 20 mg Tablet 20 mg PO BID Qty: 60 RF: 0 Continued phenazopyridine [Pyridium] 200 mg tablet 200 mg PO TID PRNRF: 0 clonazepam 0.5 mg tablet,disintegrating 0.5 mg PO Q8H PRN Qty: 10 RF: 0 lamotrigine [Lamictal] 25 MG tablet 25 mg PO 3 tabs daily RF: 0 cholecalciferol (vitamin D3) 10,000 UNIT capsule 10,000 unit PO DAILY RF: 0 nitrofurantoin macrocrystal [Macrodantin] 50 mg capsule 50 mg PO DAILY PRN (Reason: UTI prevention) Qty: 30 RF: 12 cyclobenzaprine 5 mg tablet 5 mg PO QHS PRN (Reason: muscle spasm) Qty: 30 RF: 0 docusate sodium [Colace] 100 mg capsule 100 mg PO PRN RF: 0 estradiol [Vagifem] 10 mcg tablet 10 mcg VG .COMPLEX Qty: 30 RF: 5 omega-3 fatty acids Capsule 500 mg PO DAILY RF: 0 escitalopram oxalate [Lexapro] 20 mg Tablet 20 mg PO DAILY RF: 0 Discharge Instructions Instructions: GERD (Gastroesophageal Reflux Disease) (DC) Additional Instructions: Take Pepcid twice daily Follow up with PCP when she has an opening Buy over the counter mylanta take 30 ml as needed with 15 ml lidocaine for chest pressure relief as needed. Stand Alone Forms: Nursing Discharge Form Activity:: Activity as Tolerated Equipment/Supplies:: No Equipment Needed Diet:: As Tolerated Discharge Orders Discharge Orders: Discharge Order (Routine); Ordered 09/16/20 Ordered By: Shy Cesar DS: Summary Time Spent with Patient providing and/or coordinating discharge services: Greater than 30 minutes (45 mins) Status at Discharge Functional status at discharge: independent ambulation Overall status at discharge: patient is back to baseline Mental Status: mental status grossly normal Speech and Movement: speech and movement normal and slowed movement Mood: congruent mood Affect: normal affect Exam Narrative Exam Narrative: Const: Middle aged female laying on bed, AAOx 3. cooperative and no acute distress Mouth: moist mucous membranes Conjunctivae: normal conjunctivae Sclera: normal sclerae Neck: trachea midline, supple and no JVD Resp clear to auscultation bilaterally, no rales, no rhonchi and no wheezes Cardio regular rate and not tachycardic: regular rhythm GI: Palpation: soft, not firm, no guarding, no masses, not rigid and nontender Skin: no rashes or lesions noted Neuro patient alert, patient awake, patient oriented x3 and tone normal Extrem no calf tenderness and no edema Psych: Appearance: grossly normal Mental Status: mental status grossly normal Speech and Movement: speech and movement normal Psych Mental Status: mental status grossly normal Speech and Movement: speech and movement normal and slowed movement Mood: congruent mood Affect: normal affect DS: Data Vitals/I&O Vitals and I&O: Vital Signs Temperature 36.4 C L 09/16/20 07:29 Temperature Source Tympanic 09/16/20 07:29 Pulse 60 09/16/20 07:29 Pulse Rhythm Regular 09/16/20 00:45 Pulse 58 L 09/15/20 16:01 Respiratory Rate 18 09/16/20 07:29 Respiratory Effort 09/16/20 00:45 Respiratory Depth Normal 09/16/20 00:45 Respiratory Pattern Normal 09/16/20 00:45 Blood Pressure 103/64 09/16/20 07:29 Blood Pressure Mean 72 09/15/20 16:00 Blood Pressure Position Sitting 09/15/20 10:37 Pulse Oximetry 97 09/16/20 07:29 Oxygen Delivery Method Room Air 09/16/20 07:29 Oxygen Flow Rate 0 09/16/20 07:29 Pain Level 0 09/16/20 07:29 Intake & Output 09/15/20 09/15/20 09/16/20 11:59 23:59 11:59 Intake Total 30 / 940 910 / 940 0 / 0 Balance 30 / 940 910 / 940 0 / 0 Weight 58.967 kg Intake: IV 30 / 580 550 / 580 Oral 360 / 360 0 / 0 Other: Urine Color Pale Urine Appearance Clear Comment PT STATED SHE VOIDED 3-4 TIMES DURING THE NOC. Voiding Methods Toilet Toilet Data Completed and Pending Completed studies during hospitalization [Text1]: Exam(s) a CT:CT thorax & abdomen CTA EXAM: CT THORAX ABDOMEN CTA CLINICAL HISTORY: chest pain radiating top back. TECHNIQUE: Imaging Protocol: Axial CT angiography was performed with multi- slice acquisition and multi-planar and/or 3D reconstructions. CONTRAST MATERIAL: Intravenous: Omnipaque 350 Contrast volume:100 mL Oral: No COMPARISON: No exams were available for comparison FINDINGS: CHEST: Tracheobronchial tree: Patent where visualized. Pulmonary parenchyma: No consolidation or dominant measurable mass. Scarring in the right middle lobe. Pulmonary Arteries: No evidence of filling defect to suggest pulmonary emboli. Mediastinum and Nell: No dominant adenopathy or fluid collection. Visualized thyroid: Unremarkable. Pleura: No effusion or pneumothorax. Heart: The heart is not dilated. No coronary artery calcifications are seen. No pericardial effusion. Aorta: Thoracic aorta non-dilated. Mild atherosclerosis. No dissection. Soft Tissues: Unremarkable. Bones: Mild degenerative changes in the spine. ABDOMEN AND PELVIS: Abdomen: Celiac axis/mesenteric arteries: No evidence of occlusion or significant stenosis. Renal Arteries: No evidence of occlusion or significant stenosis. There is a single renal artery perfusing each kidney. Aorta: No evidence of occlusion or significant stenosis. No aneurysm or dissection. Mild atherosclerosis. Iliac Arteries: No evidence of occlusion or significant stenosis. ABDOMEN: Liver: Normal density. There is a 0.6 cm enhancing lesion in the posterior segment of the right lobe of the liver. It is isodense to the aorta and likely reflects a hepatic hemangioma. There is a 2.6 cm lesion in the posterior segment of the right lower of the liver which shows nodular enhancement which is isodense to the aorta and likely reflects a hepatic hemangioma. A dedicated hemangioma protocol CT scan of the liver may be obtained for further evaluation. Portal, Superior Mesenteric, and Splenic Veins: Unremarkable. Gallbladder and Biliary Tract: No radiodense calculus or dilation. Pancreas: Normal density, no abnormal calcifications or inflammatory process. Spleen: Normal. Adrenals: No masses seen. Kidneys: Normal size, contour and axis. No radiodense stones or obstructive uropathy. No masses seen. Bowel: No obstruction or bowel wall thickening. Peritoneal Cavity: No ascites, collection or mesenteric inflammatory response. No free air. Lymph Nodes: Within normal limits. Bones: Within normal limits. Soft Tissues: Unremarkable. IMPRESSION: No evidence of thoracic or abdominal aneurysm or dissection. Results of this exam have been verbally communicated with provider. Complete Labs on day of discharge: Labs from last 24 hours 09/15/20 09/15/20 09/15/20 14:03 11:22 10:44 WBC RBC Hgb Hct MCV MCH MCHC RDW Plt Count MPV Immature Gran % Neutrophils % Lymphocytes % Monocytes % Eosinophils % Basophils % Nucleated RBC % Absolute Neutrophils Absolute Lymphocytes Absolute Monocytes Absolute Eosinophils Absolute Basophils APTT Sodium Potassium Chloride Carbon Dioxide Anion Gap BUN Creatinine Estimated GFR/1.73 m2 Glucose Calcium Total Bilirubin AST ALT Alkaline Phosphatase Troponin I < 0.05 NT-Pro-B Natriuret Pep Total Protein Albumin Lipase 130 COVID-19 Source Nasal/nares SARS-CoV-2 (PCR) Negative 09/15/20 09/15/20 09/15/20 10:44 10:44 10:44 WBC 3.54 L RBC 4.17 Hgb 12.7 Hct 37.3 MCV 89.4 MCH 30.5 MCHC 34.0 RDW 12.1 Plt Count 244 MPV 9.9 Immature Gran % 0.3 Neutrophils % 52.8 Lymphocytes % 31.4 Monocytes % 12.1 Eosinophils % 2.8 Basophils % 0.6 Nucleated RBC % 0 Absolute Neutrophils 1.87 Absolute Lymphocytes 1.11 L Absolute Monocytes 0.43 Absolute Eosinophils 0.10 Absolute Basophils 0.02 APTT 24.6 Sodium Potassium Chloride Carbon Dioxide Anion Gap BUN Creatinine Estimated GFR/1.73 m2 Glucose Calcium Total Bilirubin AST ALT Alkaline Phosphatase Troponin I NT-Pro-B Natriuret Pep 99 Total Protein Albumin Lipase COVID-19 Source SARS-CoV-2 (PCR) 09/15/20 10:44 WBC RBC Hgb Hct MCV MCH MCHC RDW Plt Count MPV Immature Gran % Neutrophils % Lymphocytes % Monocytes % Eosinophils % Basophils % Nucleated RBC % Absolute Neutrophils Absolute Lymphocytes Absolute Monocytes Absolute Eosinophils Absolute Basophils APTT Sodium 142 Potassium 3.9 Chloride 104 Carbon Dioxide 29.1 Anion Gap 8.9 BUN 12 Creatinine 0.8 Estimated GFR/1.73 m2 >= 60.00 Glucose 89 Calcium 8.6 Total Bilirubin 0.5 AST 11 L ALT 18 Alkaline Phosphatase 69 Troponin I < 0.05 NT-Pro-B Natriuret Pep Total Protein 7.0 Albumin 3.8 Lipase COVID-19 Source SARS-CoV-2 (PCR) [facility] Medical History Alcohol abuse per referral note pt goes to AA 3-4 times a week, sober for 23 years Anemia Anxiety associated with depression Anxiety with flying uses Clonopin PRN. Arm pain, right Bunion of unspecified foot Cervicalgia Chronic fatigue Depression stable on SSRI. Lamictal added after cervical neck fusion. Fear of flying Hearing loss History of alcohol use disorder clean and sober for years. History of IBS IBS (irritable bowel syndrome) Leg cramps Mammogram abnormal Menorrhagia 01/2015 resulting in anemia. 01/2016 bleeding has improved. Nl pelvic u/s. Microcytic anemia 01/2015. Resolved with supplemental iron. Normal colonoscopy (~03/2020) Right hip pain Surgical History cervical neck fusion section x3. Family History Mother , dementia at age 72. Myocardial infarction Father Myocardial infarction Brother Myocardial infarction Social History Smoking/Tobacco Use Status: Current every day Tobacco Type: e-cigarettes Smoking risk assessment performed?: Yes Alcohol Intake: former Drug use: Current Sobriety Substance use type: does not use Counseling provided: other Details: Sober 25 years Household members: family and other Details: Kareem TreviñoMorgan Felipe Housing: other Details: [employer] Number of Children: 3 Education Level: college Details: online student for [employer]. current occupation: bilingual elementary school teacher grammar school Sexually active: Yes What type of physical activity do you participate in: walking Duration: other Marilu/Yazidi: Sabianist Seatbelt use: always Do you feel safe at home: Yes Do you feel safe in your relationship?: Yes Additional Social history: active in [employer]. is sponsor for several new members. Female Reproductive History Menstrual control method: none History History 6 Para 3 Hx # Term Pregnancies 3 Multiple births Hx # Pregnancies Ectopic pregnancies AB induced Hx Number of Living Children AB spontaneous
[2020-09-16 11:14] VITALS: BP 115/74; PULSE 72; RESP 17; TEMP 37; O2SAT 98
[2020-09-16 11:55] VITALS: PULSE 74
== END 2020-09-16 11:59 | disposition home or self-care (01) ==
LOC: ER 15:28 → MS 16:36
PROVIDERS: Admitting Provider Internal Medicine; Emergency Provider Student in an Organized Health Care Education/Training Program; PCP Nurse Practitioner Family; Visit Provider Internal Medicine
DX: R07.89 Other chest pain (principal); F32.9 Major depressive disorder, single episode, unspecified; Z79.899 Other long term (current) drug therapy; F41.9 Anxiety disorder, unspecified; F10.11 Alcohol abuse, in remission; D64.9 Anemia, unspecified; K58.9 Irritable bowel syndrome, unspecified; R25.2 Cramp and spasm; R53.82 Chronic fatigue, unspecified
CPT/HCPCS: 36415; 71275; 74175; 80053; 83690; 87635; 93005; 96361; 96365; 99217; 99220; 99285; 83880; 84484; 85025; 85730; 93010; G0378

== ENCOUNTER 2020-09-22 13:09 | Outpatient (REF) | payer MEDICAID, SELFPAY ==
[2020-09-26 13:46] LABS: Helicobacter pylori Ag, Feces Negative (Negative)
== END 2020-09-22 13:10 | disposition home or self-care (01) ==
LOC: NCHCN 13:09
PROVIDERS: PCP Nurse Practitioner Family; Visit Provider Nurse Practitioner Family
DX: R10.13 Epigastric pain (principal)
CPT/HCPCS: 87338

== ENCOUNTER 2020-10-11 01:57 | Outpatient (CLI) | payer MEDICAID, SELFPAY ==
--- NOTE | 2020-10-11 | DI.CT_ITS ---
Exam(s) CT ABDOMEN WO/W EXAM: CT ABDOMEN WO/W CLINICAL HISTORY: ABD PAIN,R10.9,F/U ABNL CTA,LIVER LESION TECHNIQUE: COMPARISON: CT CT THORAX ABDOMEN CTA from 09/15/2020 FINDINGS: Study is submitted for interpretation. Performed both pre and post contrast injection. Visualized lung bases are clear. No pleural effusions. LIVER: There are 2 focal findings in the liver, both benign appearance. Firstly, there is a small subcapsular rapidly enhancing subcapsular 6 x 5 millimeter lesion which h as appearance of a rapidly enhancing small hemangioma. Secondly, the larger right hepatic lobe subcapsular previously described lesion is again noted and ex hibits typical centripetal enhancement pattern of a benign subcapsular cavernous hemangioma. There are no others focal hepatic findings. No dilatation of intrahepatic ducts. No obvious gallbla dder pathology. CBD is not dilated.. No significant focal findings in the pancreas. Pancreatic david t is not dilated. Spleen size is normal. Splenic and portal veins are patent. There are no signifi cant adrenal masses. No significant focal findings in the kidneys. The abdominal aorta is not enlar ged. There is no ijgjugnorhnrvcs-sbka-whotzz adenopathy. No bowel obstruction. Abundant fecal material noted in the partially included colon. No significant osseous lesions. IMPRESSION: 1. Two separate benign-appearing findings as described above in the right hepatic lobe. Both have th e appearance of benign hemangiomas. 2. No other significant findings in the upper abdomen. 3. Pelvis was not scanned.
[2020-10-11] MEDS: Omnipaque 350 MG/ML 100 ML BTL IV (09:15)
== END 2020-10-11 02:17 ==
PROVIDERS: PCP Nurse Practitioner Family; Visit Provider Nurse Practitioner Family
DX: R10.9 Unspecified abdominal pain (principal); K76.89 Other specified diseases of liver; D18.03 Hemangioma of intra-abdominal structures
CPT/HCPCS: 74170; J3490

== ENCOUNTER 2021-01-23 03:19 | Outpatient (CLI) | payer MEDICAID, SELFPAY ==
--- NOTE | 2021-01-23 13:42 | DI.MAMMO_ITS ---
Exam(s) MAMMO DIAGNOSTIC BI EXAM: MAMMO DIAGNOSTIC BI CLINICAL HISTORY: ABNL MAMMO R92.8 TECHNIQUE: Mammograms were interpreted according to the usual protocol including computer analysis w Glomera CAD system, tomosynthesis and C-view imaging. COMPARISON: 2013 through 2019 FINDINGS: Exam is a follow-up of the left breast for questioned area of asymmetric density. The breasts are composed of heterogeneously dense fibroglandular densities, Breast Density category C . No suspicious masses or suspicious microcalcifications are seen. No skin thickening or abnormal axillary lymph nodes are seen. There has been no significant change from prior exams. IMPRESSION: BI-RADS Category 1, Negative mammogram. Yearly screening mammography is recommended. Breast Density Category C, heterogeneously Dense. The mammogram demonstrates the patient's breast tissue is dense. Dense breast tissue is very common a nd is not abnormal but dense breast tissue can make it harder to find cancer on a mammogram. Also, de nse breast tissue may increase breast cancer risk. This information about the result of the mammogram report was provided to the patient to raise their awareness. Use this report when you speak with the patient about their risks for breast cancer, which includes their family history. At that time, you may recommend additional screening tests (Ultrasound or MRI) as they might be useful based on their r isk. A negative radiographic report should not delay biopsy if a dominant or clinically suspicious mass is present. Up to ten percent of cancers are not identified on mammography. A negative report may reinforce clinical impression. Adenosis and dense breasts may obscure an underlying neoplasm. False positive reports average 6 to 10%.
== END 2021-01-23 03:39 ==
PROVIDERS: PCP Nurse Practitioner Family; Visit Provider Nurse Practitioner
DX: R92.8 Other abnormal and inconclusive findings on diagnostic imaging of breast (principal); R92.2 Inconclusive mammogram
CPT/HCPCS: 77062; 77066; G0279

== ENCOUNTER 2021-02-09 02:47 | Outpatient (CLI) | payer MEDICAID, SELFPAY ==
[2021-02-09 10:34] LABS: Absolute Basophil Count 0.03 10^3/uL (0.0-0.2); Absolute Eosinophil Count 0.07 10^3/uL (0.0-0.7); Absolute Lymphocyte Count 1.13 10^3/uL (1.2-3.4); Absolute Monocyte Count 0.41 10^3/uL (0.1-0.8); Absolute Neutrophil Count 1.69 10^3/uL (1.2-6.7); Basophils % 0.9; Eosinophils % 2.1; HCT 37.1 % (36.0-46.0); Lymphocytes % 33.9; MCH 27.6 pg (27.0-33.0); MCHC 32.3 % (32.0-36.0); MCV 85.3 fL (80-95); MPV 9.1 fL (8.0-11.0); Monocytes % 12.3; Neutrophils % 50.8; Nucleated RBC 0 %; Platelet Count 225 10^3/uL (130-400); RBC 4.35 10^6/uL (3.93-5.22); RDW 14.6 % (11.7-14.6); RDW-SD 45.1 fL; WBC 3.33 10^3/uL (4.4-10.8)
[2021-02-09 10:50] LABS: Hemoglobin A1C 5.2 % (<5.7)
[2021-02-09 11:36] LABS: Magnesium 1.8 mg/dL (1.8-2.4)
[2021-02-09 12:27] LABS: ALT 19 U/L (14-59); AST 16 U/L (15-37); Alkaline Phosphatase 72 U/L (46-116); Anion Gap 7.5 mmol/L (3-11); BUN 14 mg/dL (7-18); Bilirubin, Total 0.4 mg/dL (0.2-1.0); CO2 30.5 mmol/L (21.0-32.0); Calcium 8.9 mg/dL (8.5-10.1); Calculated LDL 133 mg/dL (<100); Chloride 101 mmol/L (98-107); Cholesterol 231 mg/dL (<200); Estimated GFR 58.22 (mL/min/1.73m2); Ferritin 12 ng/mL (8-252); Folate 19.6 ng/mL (8.6-20.0); Glucose 73 mg/dL (74-106); HDL Cholesterol 89 mg/dL (40-60); Potassium 4.2 mmol/L (3.5-5.1); Sodium 139 mmol/L (136-145); TSH 1.46 uIU/mL (0.36-3.74); Total Protein 6.9 g/dL (6.4-8.2); Triglyceride 47 mg/dL (<150); Vitamin B12 578 pg/mL (193-986)
[2021-02-09 12:42] LABS: FREE T4 0.91 ng/dL (0.76-1.46)
[2021-02-09 12:46] LABS: C-Reactive Protein < 0.05 mg/dL (0.0-0.3)
[2021-02-09 16:53] LABS: T3,Free 2.9 pg/mL (2.8-5.3)
== END 2021-02-09 02:48 | disposition home or self-care (01) ==
LOC: LBO 02:47
PROVIDERS: PCP Nurse Practitioner; Visit Provider Psychiatry & Neurology Psychiatry
DX: F33.1 Major depressive disorder, recurrent, moderate (principal); Z79.899 Other long term (current) drug therapy
CPT/HCPCS: 36415; 80053; 80061; 82306; 82607; 82728; 82746; 83036; 83735; 84439; 84443; 84481; 85025; 86140

== ENCOUNTER 2021-02-09 02:51 | Outpatient (CLI) | payer MEDICAID, SELFPAY ==
[2021-02-09 12:01] LABS: Source Nasal/Nares
[2021-02-09 17:48] LABS: COVID-19 PCR Negative (Negative)
== END 2021-02-09 02:52 | disposition home or self-care (01) ==
LOC: LBO 02:51
PROVIDERS: PCP Nurse Practitioner; Visit Provider Surgery
DX: Z20.822 Contact with and (suspected) exposure to COVID-19 (principal); Z01.818 Encounter for other preprocedural examination
CPT/HCPCS: 87635

== ENCOUNTER 2021-02-12 07:13 | Day surgery (SDC) | payer MEDICAID, SELFPAY ==
--- NOTE | 2021-02-12 06:40 | ENDO_ITS ---
Date of service: 02/12/21 Time of Service: 08:32 Endoscopy Report DATE OF PROCEDURE: 02/12/21 PRE-OP DIAGNOSIS: Blaoting, abdominal pain POST-OP DIAGNOSIS: other (gastritis) PROCEDURE: EGD with biopsies SURGEON: Nidhi Mar ANESTHESIA TYPE: General:No Airway (Andrei Rider, RACHEL) ESTIMATED BLOOD LOSS: 3 PATHOLOGY: other (pyloric bx, antrum bx, GE junction bx) COMPLICATIONS: None DISPOSITION: same day INDICATIONS: Mrs Clayton is a 50-year-old female with complaints of abdominal pain bloating and constipation. She just underwent a colonoscopy in March of last year which was completely normal. She was seen in the emergency department in September for some upper abdominal/chest pain and was admitted overnight. Cardiac work-up was negative. She had a CT angiogram which showed a couple of liver lesions. Follow-up CT scan showed 2 hemangiomas in her liver but otherwise negative. She has no pain after eating. She has no nausea or vomiting. The procedure was explained to the patient in detail. Risks and benefits were reviewed. The differential includes gastritis, peptic ulcer disease, gluten allergy, biliary dyskinesia. We will start with an EGD and if this is completely negative then we will do an ultrasound of the gallbladder followed by a HIDA scan if the ultrasound is negative. Risks, benefits and complications have been reviewed. Complications include but are not limited to bleeding, pain, perforation, sore throat, aspiration, and adverse reaction to the medications. Questions were entertained and answered to their satisfaction and they wished to proceed. No guarantees were given or impl ied. FINDINGS: mild inflammation of the antrum, ? shallow ulcers of pylorus PROCEDURE DESCRIPTION: After informed consent was obtained the patient was take to the procedure room and placed in a supine position. Monitors were applied and a time out was done. The patients name, date of , procedure type, allergies to medications and metal in their body was reviewed. A bite block was placed and the patient was sedated. Once sedated and comfortable the gastroscope was advanced through the jerome pharynx which was grossly normal into the esophagus. The proximal and mid- esophagus were normal. In the distal esophagus there was mild inflammation noted. The scope was advanced into the stomach and through the pylorus into the 3rd portion of the duodenum. The duodenum was noted to be normal. The scope was retracted back into the stomach. There was some inflammation and some shallow ulcers at the pylorus. Biopsies were done to rule out H. pylori. The scope was retroflexed. The cardia and fundus were noted to be normal. There was no hiatal hernia noted. The scope was retracted back into the esophagus and biopsies were done of the GE junction to rule out Jeong's. The Z line was regular. The GE junction was at 48 cm. The scope was removed and the patient was woken up and taken back to [facility] in stable condition. Follow up: 2 weeks in the office
--- NOTE | 2021-02-12 06:41 | PDOC.DSDIS_ITS ---
Discharge Plan Disposition Patient Disposition: HOME Condition: Good Discharge Details Reason For Visit: EGD Attending Provider: Nidhi Mar Primary Care Provider: Rebecca Henson Home Meds and New Rx's Prescriptions: New omeprazole 40 mg capsule,delayed release(DR/EC) 40 mg PO DAILY Qty: 30 RF: 0 Continued phenazopyridine [Pyridium] 200 mg tablet 200 mg PO TID PRNRF: 0 clonazepam 0.5 mg tablet,disintegrating 0.5 mg PO Q8H PRN Qty: 10 RF: 0 lamotrigine [Lamictal] 25 MG tablet 75 mg PO 3 tabs daily RF: 0 cholecalciferol (vitamin D3) 10,000 UNIT capsule 10,000 unit PO DAILY RF: 0 nitrofurantoin macrocrystal [Macrodantin] 50 mg capsule 50 mg PO DAILY PRN (Reason: UTI prevention) Qty: 30 RF: 12 cyclobenzaprine 5 mg tablet 5 mg PO QHS PRN (Reason: muscle spasm) Qty: 30 RF: 0 docusate sodium [Colace] 100 mg capsule 100 mg PO PRN RF: 0 estradiol [Vagifem] 10 mcg tablet 10 mcg VG .COMPLEX Qty: 30 RF: 5 tretinoin [Retin-A] 0.1 % cream 1 applic topical QHS RF: 0 omega-3 fatty acids Capsule 500 mg PO DAILY RF: 0 escitalopram oxalate [Lexapro] 20 mg Tablet 20 mg PO DAILY RF: 0 polyethylene glycol 3350 [Miralax] 17 gram Powder In Packet RF: 0 multivitamin Tablet 1 tab PO DAILY RF: 0 Discharge Instructions Instructions: Gastritis (DC), Diet for Stomach Ulcers and Gastritis (ED) Additional Instructions: Findings: mild to moderate inflammation of the stomach Follow up: 2 weeks Please call if you develop: fevers >101.5 Nausea or Vomiting Abdominal pain that is not transient Rectal bleeding that is more then a tbsp A hard abdomen and inability to pass gas DAY SURGERY UNIT POST ENDOSCOPY INSTRUCTIONS Instructions for everyone who is given Anesthesia: For your safety, please do the following for the next 24 Hours: a. Do not drive or operate dangerous equipment b. Do not drink alcohol beverages or use any recreational drugs for the first 24 hours or while taking pain medications. The medications in your body may have a reaction that can be dangerous. c. Do not make any important decisions or sign any important papers 1. Generally there are no restrictions on your activity after a day or so has gone by, but you may feel a bit fatigued for a few days. 2. After you arrive home you may have a light meal and return to a normal diet as you can tolerate it without feeling sick to your stomach. 3. After surgery, you may feel pain or discomfort. This should be only transient, but if it persists please contact your doctor. 4. If there are any questions regarding the findings of your procedure, please feel free to contact your doctor. 6. If you are unable to contact your doctor with a problem, contact the hospital at [phone]. 7. Continue all your regular medications unless directed otherwise. I understand the above instructions and have no questions. Signature of Patient or Responsible Adult Escort Date/Time Name of Responsible Adult Escort Signature of Nurse Date/Time Referrals: Nidhi Mar MD [ [facility] STAFF PHYSICIAN] - 02/23/21 11:30 am Activity:: Activity as Tolerated Diet:: low acid Discharge Orders Discharge Orders: Discharge Order (Routine); Ordered 02/12/21 Ordered By: Nidhi Mar
[2021-02-12 07:30] VITALS: BP 99/69; PULSE 69; RESP 18; TEMP 36.4; O2SAT 97
[2021-02-12 07:42] VITALS: BMI 22.4
--- NOTE | 2021-02-12 07:42 | W.ANESPRE ---
General Info Date of Service Date Performed: 02/12/21 Height: 5 ft 5 in Weight: 61.3 kg Body Mass Index (BMI): 22.4 Surgical Procedure: Operation Date: 02/12/21 08:20 Proposed Procedures Side Surgeon p Gastroscopy Nidhi Mar MD Meds Allergies and Home Medications Allergies Allergy/AdvReac Type Severity Reaction Status Date / Time erythromycin base AdvReac headache/na Verified 02/12/21 07:24 usea Sulfa (Sulfonamide AdvReac nausea/head Verified 02/12/21 07:24 Antibiotics) ache Home Medication Medication Instructions Recorded lamotrigine [Lamictal] 75 mg PO 3 tabs daily 02/15/15 cholecalciferol (vitamin D3) 10,000 unit PO DAILY 09/25/16 nitrofurantoin macrocrystal 50 mg 50 mg PO DAILY PRN #30 cap 04/10/18 capsule phenazopyridine 200 mg tablet 200 mg PO TID PRN tab-cap 07/03/18 cyclobenzaprine 5 mg tablet 5 mg PO QHS PRN #30 tab 11/10/18 docusate sodium 100 mg capsule 100 mg PO PRN cap 06/29/19 estradiol 10 mcg vaginal tablet 10 mcg VG .COMPLEX #30 tab 02/09/20 escitalopram oxalate [Lexapro] 20 mg PO DAILY 03/02/20 omega-3 fatty acids 500 mg PO DAILY 03/02/20 clonazepam 0.5 mg disintegrating 0.5 mg PO Q8H PRN #10 tab-cap 04/05/20 tablet tretinoin 0.1 % topical cream 1 applic TOPICAL QHS 12/21/20 multivitamin [Multi-Day] 1 tab PO DAILY 02/12/21 polyethylene glycol 3350 [Miralax] 02/12/21 Current Visit Medications: Current Medications Generic Name Dose Route Start Last Admin Trade Name Freq PRN Reason Stop Dose Admin Hyoscyamine Sulfate 0.125 mg 02/12/21 06:41 Hyoscyamine 0.125 Mg Sl/Oral/Chew SL DIRECTED PRN Ringer's Solution 1,000 mls @ 80 mls/hr 02/12/21 06:00 IV 03/11/21 23:59 INFUSION CHICHI IV Miscellaneous Supplies 1 each 02/12/21 06:00 Iv Access IV 03/11/21 23:59 DIRECTED CHICHI Ondansetron HCl 4 mg 02/12/21 06:41 Ondansetron 4 Mg/2 Ml Vial IVP Q4H PRN PRN Nausea / Vomiting Sodium Chloride 0 ml 02/12/21 06:00 Normal Saline Flush 10 Ml Syr IV 03/11/21 23:59 PRN PRN Sodium Chloride 0 ml 02/12/21 06:00 Normal Saline 10 Ml Vial IJ 03/11/21 23:59 DIRECTED PRN Sterile Water 0 ml 02/12/21 06:00 Water,Injection,Sterile 10 Ml Vial IJ 03/11/21 23:59 DIRECTED PRN PFSH Active Problems Active Problems: Problem Status Onset Code Depression 02/15/15 F32.9 Frequency of micturition 06/24/16 R35.0 Inconclusive mammogram 01/16/16 R92.2 Interstitial cystitis 12/29/17 N30.10 Nocturia 06/24/16 R35.1 Deja-menopause 01/16/16 N95.1 Encounter for screening colonoscopy Z12.11 Vaginal dryness, menopausal ~10/2018 N95.1 Sensorineural hearing loss of both ears H90.3 Abdominal bloating R14.0 Epigastric pain R10.13 Abdominal pain R10.9 Cavernous hemangioma D18.00 Insomnia G47.00 Constipation K59.00 History of IBS Z87.19 Anxiety associated with depression F41.8 Medical History Medical History Alcohol abuse per referral note pt goes to AA 3-4 times a week, sober for 25 years Anemia Anxiety associated with depression Anxiety with flying uses Clonopin PRN. Arm pain, right Bunion of unspecified foot Cervicalgia Chronic fatigue Depression stable on SSRI. Lamictal added after cervical neck fusion. Fear of flying Hearing loss History of alcohol use disorder clean and sober for years. History of IBS IBS (irritable bowel syndrome) Leg cramps Mammogram abnormal Menorrhagia 01/2015 resulting in anemia. 01/2016 bleeding has improved. Nl pelvic u/s. Microcytic anemia 01/2015. Resolved with supplemental iron. Normal colonoscopy (~03/2020) Right hip pain Surgical History Surgical History (Updated 02/12/21 @ 07:28 by Jenny Meeks) cervical neck fusion section x3. Hx of colonoscopy Tobacco Smoking/Tobacco Use Status: Former Tobacco Use Alcohol Alcohol Intake: former Substance Use Substance use: Current Sobriety Substance use type: does not use Counseling provided: other Details: Sober 25 years, occasionally an e cigarette Prental History History 6 Para 3 Hx # Term Pregnancies 3 Multiple births Hx # Pregnancies Ectopic pregnancies AB induced Hx Number of Living Children AB spontaneous Vital Signs and Lab Results Vital Signs Most Recent Vital Signs in EMR: Most Recent Vital Signs Temp Pulse Resp BP Pulse Ox 36.4 C L 69 18 99/69 L 97 02/12/21 07:30 02/12/21 07:30 02/12/21 07:30 02/12/21 07:30 02/12/21 07:30 Point of Care Results Point of Care Results: POC- Test(urine) Negative 02/12/21 07:42 Lab Results Blood Type / Crossmatch: No Data to Display Complete Blood Count: White Blood Count 3.33 10^3/uL (4.4-10.8) L 02/09/21 10:23 02/09/21 Red Blood Count 4.35 10^6/uL (3.93-5.22) 02/09/21 10:23 02/09/21 Hemoglobin 12.0 g/dL (11.2-15.7) 02/09/21 10:02/09/21 Hematocrit 37.1 % (36.0-46.0) 02/09/21 10:23 02/09/21 Platelet Count 225 10^3/uL (130-400) 02/09/21 10:02/09/21 Complete Metabolic Panel: Sodium Level 139 mmol/L (136-145) 02/09/21 10:02/09/21 Potassium Level 4.2 mmol/L (3.5-5.1) 02/09/21 10:02/09/21 Chloride Level 101 mmol/L (98-107) 02/09/21 10:02/09/21 Carbon Dioxide Level 30.5 mmol/L (21.0-32.0) 02/09/21 10:23 02/09/21 Blood Urea Nitrogen 14 mg/dL (7-18) 02/09/21 10:02/09/21 Creatinine 1.0 mg/dL (0.55-1.02) 02/09/21 10:02/09/21 Estimated GFR/1.73 m2 58.22 (mL/min/1.73m2) 02/09/21 10:02/09/21 Magnesium Level 1.8 mg/dL (1.8-2.4) 02/09/21 10:02/09/21 Calcium Level 8.9 mg/dL (8.5-10.1) 02/09/21 10:02/09/21 Albumin 4.0 g/dL (3.4-5.0) 02/09/21 10:02/09/21 Glucose Level 73 mg/dL (74-106) L 02/09/21 10:02/09/21 Hemoglobin A1c 5.2 % (<5.7) 02/09/21 10:02/09/21 C-Reactive Protein < 0.05 mg/dL (0.0-0.3) 02/09/21 10:02/09/21 Liver Function Panel: Alanine Aminotransferase (ALT/SGPT) 19 U/L (14-59) 02/09/21 10:23 02/09/21 Aspartate Amino Transf (AST/SGOT) 16 U/L (15-37) 02/09/21 10:02/09/21 Coagulation Panel: No Data to Display Cardiac Panel: No Data to Display Arterial Blood Gas: No Data to Display Venous Blood Gas: No Data to Display Pancreas Panel: No Data to Display Thyroid Panel: Thyroid Stimulating Hormone (TSH) 1.46 uIU/mL (0.36-3.74) 02/09/21 10:02/09/21 Infectious Disease: Coronavirus (COVID-19)(PCR) Negative (Negative) 02/09/21 09:02/09/21 Coronavirus 2019 Source Nasal/Nares 02/09/21 09:02/09/21 Blood Cultures: No Data to Display Toxicology Panel: No Data to Display Panel: No Data to Display Anesthesia Assessment and Plan Anesthesia History Personal History: No History of Anesthesia Complications Family History: No Family History of Anesthesia Complications Exercise Tolerance Exercise Tolerance: Metabolic Equivalents>4 Pertinent Negatives Pertinent Negatives: No Symptoms of GERD Cardiac & Pulmonary Exam Cardiac Exam: Normal S1/S2 Heart Sounds Pulmonary Exam: Clear Bilateral Breath Sounds Airway Exam Known Difficult Airway: No Mallampati Class: 2 Mouth Opening: Normal (> 3cm) Thyromental Distance: Greater than 3 cm Neck Range of Motion: Full ROM Neck Circumference: Normal Teeth Condition: Normal Dentition ASA Classification ASA Score: ASA 2 Emergency Case?: No NPO Status NPO Status: NPO Clears >2 hours, Solids >8 hours Status Status: Not Relevant due to Medical History Anesthesia Plan Resuscitation Status: Full Code Anesthesia Technique: General Anesthesia Airway Planned: Natural Airway Monitors Used: Standard Monitors
[2021-02-12] MEDS: Lactated Ringers 1,000 ML 80 ML IV (07:50)
--- NOTE | 2021-02-12 08:20 | STOM_PTH ---
PATIENT: Madelyn Clayton LOC: [facility] U#:[id number] AGE/SX: 50/F ROOM: RE02/12/[address]: Nidhi Mar MD : 1970 BED: DIS: 02/12/2021 SPEC #: [id number] RECD: 02/12/21 12:44 STATUS: ALEX MIGUEL #: [id number] FLOR: 02/12/21 08:[address]: Nidhi Mar DEPT: Surgical Specimen RECD BY: Luh Sprague ENTERED: 02/12/21 12:46 SP TYPE: STOMACH OTHR DR: Rebecca Henson Tissues: 1 - STOMACH BIOPSY 2 - STOMACH BIOPSY 3 - ESOPHAGUS BIOPSY Procedures: GROSS AND MICRO LEVEL 4 Comments: [id number]
[2021-02-12 08:29] VITALS: BP 102/65; PULSE 63; RESP 20; TEMP 36.5; O2SAT 95
--- NOTE | 2021-02-12 08:31 | W.ANESPOSTOP ---
Postoperative Evaluation Date, Time and Location Date Performed: 02/12/21 Time Performed: 08:31 Patient Location: Day [facility] Unit Vital Signs Most Recent Imported Vital Signs: Most Recent Vital Signs Temp Pulse Resp BP Pulse Ox 36.4 C L 69 18 99/69 L 97 02/12/21 07:30 02/12/21 07:30 02/12/21 07:30 02/12/21 07:30 02/12/21 07:30 Most Recent Manually Entered Vital Signs: Adult Blood Pressure: 102/65 Heart Rate: 66 Respirations: 20 Oxygen Saturation (%): 95 Temperature (C): 36.5 C Pain Score (0-10 Scale): 0 Pain Score Most Recent Pain Score: Most Recent Pain Score Pain Level 0 02/12/21 07:30 Assessment Mental Status: Awake (Alert & Oriented to Patient Baseline) Airway and Respiratory Function: Patent airway with normal (patient baseline) respiratory exam Cardiovascular Function: Hemodynamically Stable Hydration Status: Adequately Hydrated Nausea & Vomiting: No Nausea or Vomiting Pain: Pt. Denies Any Pain Peripheral Nerve Block: Patient did not receive a nerve block
[2021-02-12 08:32] VITALS: BP 102/65; PULSE 66; RESP 20; TEMPC 36.5; O2SAT 95
[2021-02-12 08:55] VITALS: BP 104/64; PULSE 58; RESP 20; TEMP 36.4; O2SAT 100
== END 2021-02-12 09:24 | disposition home or self-care (01) ==
LOC: SUR 07:13
PROVIDERS: PCP Nurse Practitioner; Visit Provider Surgery
PROC: 0DJ68ZZ Inspection of Stomach, Via Natural or Artificial Opening Endoscopic (ICD-10-PCS; CPT 43235; principal; 2021-02-12 08:15)
DX: R10.10 Upper abdominal pain, unspecified (principal); K25.9 Gastric ulcer, unspecified as acute or chronic, without hemorrhage or perforation; K22.70 Barrett's esophagus without dysplasia; K29.70 Gastritis, unspecified, without bleeding; K31.89 Other diseases of stomach and duodenum
CPT/HCPCS: 43239; 88305; J2001

== ENCOUNTER 2021-03-16 00:42 | Outpatient (CLI) | payer MEDICAID, SELFPAY ==
--- NOTE | 2021-03-16 07:15 | DI.US_ITS ---
Exam(s) US ABDOMEN EXAM: US ABDOMEN CLINICAL HISTORY: R/O cholecystitis/cholelithiasis,ABD BLOATING,ABD PAIN,R14.0,R10.13 TECHNIQUE: Ultrasound abdomen performed using standard protocol. COMPARISON: CT CT ABDOMEN WO/W from 10/11/[address] ABDOMEN WO/W from 10/11/2020 FINDINGS: LIVER: Normal size and echogenicity. 2.4 centimeter subcapsular echogenic lesion lateral right lobe, consistent with previously noted hemangioma... GALLBLADDER: No evidence of cholelithiasis. No evidence of wall thickening. No pericholecystic fluid identified. JIMENEZ'S SIGN: Negative. BILIARY SYSTEM: No intrahepatic or extrahepatic biliary ductal dilation. KIDNEYS: Kidneys are symmetric in size. No evidence of renal calculi. No evidence of hydronephrosis. No renal mass or cyst identified. PANCREAS: Normal where visualized. SPLEEN: Not enlarged. ABDOMINAL AORTA AND IVC: Visualized portions normal caliber. ASCITES: None seen. IMPRESSION: Liver hemangioma. No evidence of cholelithiasis or cholecystitis. DATA REPOSITORY:
== END 2021-03-16 01:02 ==
PROVIDERS: PCP Nurse Practitioner; Visit Provider Surgery
DX: R14.0 Abdominal distension (gaseous) (principal); R10.31 Right lower quadrant pain; D18.03 Hemangioma of intra-abdominal structures
CPT/HCPCS: 76700

== ENCOUNTER 2021-03-30 00:19 | Outpatient (CLI) | payer MEDICAID, SELFPAY ==
--- NOTE | 2021-03-30 07:00 | DI.NM_ITS ---
Exam(s) NM HEPATOBILIARY CCK GRP EXAM: NM HEPATOBILIARY CCK GRP CLINICAL HISTORY: abdominal pain, bloating, Nausea, unremarkable EGD. COMPARISON: No exams were available for comparison TECHNIQUE: CCK hepatobiliary scan was performed with intravenous infusion 5.0 millicuries of technet ium 99 labeled mebrofenin. FINDINGS: Following injection of radiopharmaceutical there was prompt homogeneous hepatic uptake and prompt upt cesar in the gallbladder, bile ducts, and small intestine. Following injection of 1 microgram of cathy cystokinin, gallbladder ejection fraction was calculated at 57 percent which is in the normal range IMPRESSION: normal CCK HIDA scan. DATA REPOSITORY:
== END 2021-03-30 00:39 ==
PROVIDERS: PCP Nurse Practitioner; Visit Provider Surgery
DX: R10.13 Epigastric pain (principal)
CPT/HCPCS: 78227

== ENCOUNTER 2022-02-15 14:08 | Outpatient (REF) | payer MEDICAID, SELFPAY ==
--- NOTE | 2022-02-15 12:00 | PAPFT_PTH ---
PATIENT: Madelyn Clayton LOC: [facility] U#:[id number] AGE/SX: 51/F ROOM: RE02/15/[address]: Leona Wood : 1970 BED: DIS: 02/15/2022 SPEC #: [id number] RECD: 02/15/22 17:31 STATUS: ALEX RETrace #: [id number] FLOR: 02/15/22 12:[address]: Leona Wood DEPT: [facility] Cytology RECD BY: Luh Sprague ENTERED: 02/15/22 17:31 SP TYPE: PAPFT OTHR DR: Rebecca Henson Tissues: 1 - CX/ENDOCX FOR PAP SMEARS Procedures: PAP THIN PREP/UVM Screening HPV DNA PROBE Comments: [id number]
== END 2022-02-15 14:09 | disposition home or self-care (01) ==
LOC: LBN 14:08
PROVIDERS: PCP Nurse Practitioner; Visit Provider Obstetrics & Gynecology Gynecology
DX: Z12.4 Encounter for screening for malignant neoplasm of cervix (principal); Z11.51 Encounter for screening for human papillomavirus (HPV)
CPT/HCPCS: 88142; 87624

== ENCOUNTER → 2022-05-24 00:33 | Outpatient (CLI) | payer MEDICAID, SELFPAY ==
--- NOTE | 2022-05-24 08:15 | DI.MAMMO_ITS ---
Exam(s) MAMMO SCREENING EXAM: MAMMO SCREENING CLINICAL HISTORY: screening, z12.39. TECHNIQUE: Bilateral full field digital CC and MLO mammographic images were obtained with 3D tomosyn thesis and utilizing computer aided detection (CAD). COMPARISON: Prior mammograms were reviewed. FINDINGS: There has been no significant change in the appearance and distribution of the fibroglandular tissue. There are no CAD designations. Asymmetric densities in left breast are unchanged from prior studies. There are no new spiculated masses nor malignant appearing microcalcification groups. There is no significant architectural distortion nor skin thickening-retraction. IMPRESSION: Stable benign-appearing findings. No radiographic evidence of malignancy. BI-RADS Category 2 - Benign Findings Breast Density - Category C - Heterogeneously dense Breast density Category C or D implies that the patient has dense breast tissue. Dense breast tissue can make it harder to find cancer on a mammogram. Dense breast tissue is also associated with an incr eased risk of breast cancer. This information about the result of the mammogram report was provided to the patient to raise their awareness. Use this report when you speak with the patient about their risks for breast cancer, which includes their family history. At that time, you may recommend additional screening tests (Ultrasoun d or MRI) as these tests may add significant information. A negative radiographic report should not delay biopsy if a dominant or clinically suspicious mass is present. Up to ten percent of cancers are not identified on mammography. A negative report may reinforce clinical impression. Adenosis and dense breasts may obscure an underlying neoplasm. False positive reports average 6 to 10%. Patient will receive a letter notifying them of these results.
== END ==
PROVIDERS: PCP Nurse Practitioner Family; Visit Provider Obstetrics & Gynecology Gynecology
DX: Z12.31 Encounter for screening mammogram for malignant neoplasm of breast (principal); R92.8 Other abnormal and inconclusive findings on diagnostic imaging of breast
CPT/HCPCS: 77063; 77067

== ENCOUNTER 2022-08-12 17:16 | Outpatient (REF) | payer MEDICAID, SELFPAY | END 2022-08-12 17:17 | disposition home or self-care (01) | LOC: LBN 17:16 | PROVIDERS: PCP Nurse Practitioner Family; Visit Provider Obstetrics & Gynecology | DX: R30.0 Dysuria (principal) | CPT/HCPCS: 87077; 87086; 87186 ==

== ENCOUNTER 2022-10-24 12:40 | Outpatient (REF) | payer MEDICAID, SELFPAY ==
[2022-10-24 19:05] LABS: Abs Immature Grans 0.01 10^3/uL (0.0-0.06); Absolute Basophil Count 0.05 10^3/uL (0.0-0.2); Absolute Eosinophil Count 0.08 10^3/uL (0.0-0.7); Absolute Lymphocyte Count 1.01 10^3/uL (1.2-3.4); Absolute Neutrophil Count 2.24 10^3/uL (1.2-6.7); Basophils % 1.3; Eosinophils % 2.1; HCT 42.2 % (36.0-46.0); Immature Grans % 0.3; Lymphocytes % 26.6; MCH 29.7 pg (27.0-33.0); MCHC 33.2 % (32.0-36.0); MCV 89 fL (80-95); MPV 9.6 fL (8.0-11.0); Monocytes % 10.6; Neutrophils % 59.1; Platelet Count 282 10^3/uL (130-400); RBC 4.72 10^6/uL (3.93-5.22); RDW 11.8 % (11.7-14.6); RDW-SD 38.2 fL; WBC 3.79 10^3/uL (4.4-10.8)
[2022-10-24 19:25] LABS: ALT 22 U/L (14-59); AST 18 U/L (15-37); Albumin 4.5 g/dL (3.4-5.0); Alkaline Phosphatase 76 U/L (46-116); BUN 22 mg/dL (7-18); Bilirubin, Total 0.3 mg/dL (0.2-1.0); CREATININE 0.8 mg/dL (0.55-1.02); Calcium 9.5 mg/dL (8.5-10.1); Calculated LDL 228 mg/dL (<100); Chloride 101 mmol/L (98-107); Cholesterol 346 mg/dL (<200); Glucose 92 mg/dL (74-106); HDL Cholesterol 106 mg/dL (40-60); Potassium 4.1 mmol/L (3.5-5.1); Sodium 141 mmol/L (136-145); Total Protein 7.8 g/dL (6.4-8.2); Triglyceride 64 mg/dL (<150)
== END 2022-10-24 12:41 | disposition home or self-care (01) ==
LOC: NCHCN 12:40
PROVIDERS: PCP Nurse Practitioner Family; Visit Provider Nurse Practitioner Family
DX: R10.31 Right lower quadrant pain (principal); Z13.220 Encounter for screening for lipoid disorders
CPT/HCPCS: 80053; 80061; 85025

== ENCOUNTER 2022-10-24 13:17 | Outpatient (CLI) | payer MEDICAID, SELFPAY ==
--- NOTE | 2022-10-24 | DI.CT_ITS ---
Exam(s) CT ABDOMEN PELVIS W EXAM: CT ABDOMEN PELVIS W CLINICAL HISTORY: RUQ ABD PAIN,R10.11 TECHNIQUE: Imaging Protocol: Axial computed tomography images with coronal and sagittal reformatted images were created and reviewed CONTRAST MATERIAL: Intravenous: Omnipaque 350 Contrast volume:100 mL Oral: Yes COMPARISON: CT CT ABDOMEN WO/W from 10/11/2020 FINDINGS: ABDOMEN: Lung Bases: Normal where visualized. Liver: Normal density. There are 2 stable masses in the right lobe of the liver. They show periphera l nodular enhancement which is isodense to the aorta. These are most consistent with hepatic hemangi omas. They are unchanged compared to the prior examination. No suspicious hepatic masses are seen. Portal, Superior Mesenteric, and Splenic Veins: Unremarkable. Gallbladder and Biliary Tract: No radiodense calculus or dilation. Pancreas: Normal density, no abnormal calcifications or inflammatory process. Spleen: Normal. Adrenals: No masses seen. Kidneys: Normal size, contour and axis. No radiodense stones or obstructive uropathy. No masses seen. Abdominal Aorta: Abdominal portion non-dilated. Atherosclerosis. Bowel: There is no evidence of bowel obstruction. There is mild bowel wall thickening in the distal stomach. This may represent gastritis. Please correlate clinically. No evidence of appendicitis. There is a moderate amount of stool throughout the colon suggesting constipation. Peritoneal Cavity: No ascites, collection or mesenteric inflammatory response. No free air. Lymph Nodes: Within normal limits. Bones: Within normal limits for the patient's age. Soft Tissues: Unremarkable. PELVIS: Bladder: Symmetric distention, no gross wall thickening. Reproductive Organs: Unremarkable as visualized. Lymph Nodes: Within normal limits. Bones: Within normal limits for the patient's age. IMPRESSION: 1. Mild thickening of the wall of the distal stomach. This may represent gastritis. Please correlat e clinically. 2. Two stable hepatic masses most consistent with hepatic hemangiomas. A hepatic hemangioma protocol CT was done in 2020 confirming that these are hemangiomas. No follow-up is recommended. RADIATION DOSE DELIVERED: 675.15mGy.cm Total DLP DATA REPOSITORY: All CT scans at this facility are submitted to the National Radiology Data Registry (NRDR) Dose Index Registry (DIR) with the [employer] (ACR). RADIATION OPTIMIZATION: All CT scans at this facility use at least one of these dose optimization te chniques: automated exposure control; mA and/or kV adjustment per patient size (includes targeted exa ms where dose is matched to clinical indication); or iterative reconstruction.
[2022-10-24] MEDS: Barium Sulfate 2% W/V-Berry Smoothie 450 ML BTL 900 ML PO (13:50)
[2022-10-24] MEDS: Normal Saline Flush 10 ML SYR IVP (16:07)
[2022-10-24] MEDS: Normal Saline - Diluent 50 ML VIAL IJ (16:07)
[2022-10-24] MEDS: Omnipaque 350 MG/ML 100 ML BTL IJ (16:07)
== END 2022-10-24 13:37 ==
LOC: DI 13:18
PROVIDERS: PCP Nurse Practitioner Family; Visit Provider Nurse Practitioner Family
DX: R10.11 Right upper quadrant pain (principal); D18.03 Hemangioma of intra-abdominal structures
CPT/HCPCS: 74177; J3490

== ENCOUNTER 2022-12-25 02:26 | Outpatient (CLI) | payer MEDICAID, SELFPAY ==
--- NOTE | 2022-12-25 14:30 | DI.CTLCSR_ITS ---
Exam(s) CT CHEST LUNG CANCER SCREEN EXAM: CT CHEST LUNG CANCER SCREEN CLINICAL HISTORY: H/O CIGARETTE SMOKER, Z87.891 TECHNIQUE: Imaging Protocol: Axial computed tomography images with coronal and sagittal reformatted images were created and reviewed COMPARISON: CT CT THORAX ABDOMEN CTA from 09/15/2020 FINDINGS: Tracheobronchial tree: Patent where visualized. Pulmonary parenchyma: No consolidation or dominant measurable mass. No architectural distortion. Ther e is mild parenchymal scarring. Lung Nodules: None. Mediastinum and Nell: No dominant adenopathy or fluid collection. The esophagus is unremarkable. Thyroid gland: Unremarkable. Lymph nodes: Unremarkable. Pleura: No effusion or pneumothorax. Heart: The heart is not dilated. No coronary artery calcifications are seen. There is a small perica rdial effusion. Aorta: Thoracic aorta non-dilated.Atherosclerosis is present. Upper abdomen: Unremarkable. Soft Tissues: Unremarkable. Bones: Within normal limits. IMPRESSION: No pulmonary nodules. Lung RADS Cat 1 - Negative: No nodules and definitely benign nodules Lung-RADS 1.0 CATEGORIES: Category 0 - Prior chest CT exam(s) being located for comparison. Category 1 - Annual screening in 12 months. No nodules or definitely benign nodules. Category 2 - Annual screening in 12 months. Benign appearance. Nodules with low likelihood of becomin g active cancer. Category 3 - 6-month follow-up. Probably benign. Short-term follow-up suggested. Nodules with low lik elihood of becoming active cancer. Category 4A - 3-month follow-up and CT/PET if >8 mm in size. Suspicious finding. Findings which requi re additional testing. Category 4B - Findings which require additional testing and tissue sampling. Suspicious finding. Category 4X - Category 3 or 4 nodules with additional features or imaging findings that increases the suspicion of malignancy. Modifier S- Potentially clinically significant finding. (Non lung cancer) RADIATION DOSE DELIVERED: 79.85mGy.cm Total DLP 79.85mGy.cmTotal DLP DATA REPOSITORY: All CT scans at this facility are submitted to the National Radiology Data Registry (NRDR) Dose Index Registry (DIR) with the [employer] (ACR). RADIATION OPTIMIZATION: All CT scans at this facility use at least one of these dose optimization te chniques: automated exposure control; mA and/or kV adjustment per patient size (includes targeted exa ms where dose is matched to clinical indication); or iterative reconstruction.
== END 2022-12-25 02:46 ==
LOC: DI 02:26
PROVIDERS: PCP Nurse Practitioner Family; Visit Provider Nurse Practitioner Family
DX: Z12.2 Encounter for screening for malignant neoplasm of respiratory organs (principal); Z87.891 Personal history of nicotine dependence
CPT/HCPCS: 71271

== ENCOUNTER 2022-12-30 00:55 | Outpatient (CLI) | payer MEDICAID, SELFPAY ==
--- NOTE | 2022-12-30 08:30 | DI.MRI_ITS ---
Exam(s) MR ABDOMEN WO/W EXAM: MR ABDOMEN WO/W CLINICAL HISTORY: CAVERNOUS HEMANGIOMA, D18.00 TECHNIQUE: Multiplanar multisequence MRI was performed with both pre and post contrast infused seque nces. Contrast injected sequences were performed following IV injection of cc of Dotarem. COMPARISON: CT CT ABDOMEN WO/W from 10/11/[address] ABDOMEN PELVIS W from 10/24/2022 FINDINGS: VISUALIZED LUNG BASES: No pleural effusions evident. There is no ascites evident. LIVER: Liver size is normal. No steatosis. There again noted 2 findings in the right hepatic lobe. The larger is a lobulated posterior subcapsular well-defined T2 hyper intense lesion which exhibits typical centripetal enhancement of a cavernous hemangioma. This measures 2.7 cm wide by 1.2 cm AP by 3.1 cm cephalocaudal. The other smaller sub cm T2 bright finding exhibits rapid uniform enhancement , also consistent with benign hemangioma. There are no focal lesions in the left lobe of the liver. BILIARY: There is no obvious gallbladder pathology. The CBD is not dilated. PANCREAS: There is no evidence of pancreatic mass nor dilatation of the pancreatic duct. SPLEEN: Spleen is not enlarged and there are no intrasplenic lesions.Splenic and portal veins are pat ent ADRENALS: There are no significant adrenal masses. KIDNEYS: No solid renal masses. No hydronephrosis.No cysts evident. ABDOMINAL AORTA: Not enlarged and there is no significant para-aortic adenopathy. ANTERIOR ABDOMINAL WALL/GI: Diastasis rectus in the midline noted. No large hernia.Is no evidence of obvious bowel obstruction. OSSEOUS: There are no lytic osseous lesions in the field of view of this study. IMPRESSION: 1. Two findings in the right hepatic lobe consistent with benign cavernous hemangiomas. The larger m easures 2.7 x 1.2 x 3.1 cm. The smaller measures less than 1 cm. 2. No other significant findings in the upper abdomen. DATA REPOSITORY:
[2022-12-30] MEDS: Normal Saline - Diluent 50 ML VIAL 25 ML IJ (13:21)
[2022-12-30] MEDS: Gadoterate meglumine 20 ML VIAL 12 ML IVP (13:21)
== END 2022-12-30 01:15 ==
PROVIDERS: PCP Nurse Practitioner Family; Visit Provider Nurse Practitioner Family
DX: D18.03 Hemangioma of intra-abdominal structures (principal)
CPT/HCPCS: 74183

== ENCOUNTER 2023-03-03 03:55 | Outpatient (CLI) | payer MEDICAID, SELFPAY ==
[2023-03-03 08:59] LABS: ALT 21 U/L (14-59); AST 15 U/L (15-37); Albumin 3.7 g/dL (3.4-5.0); Alkaline Phosphatase 69 U/L (46-116); Anion Gap 6.4 mmol/L (3-11); BUN 19 mg/dL (7-18); Bilirubin, Total 0.3 mg/dL (0.2-1.0); CO2 30.6 mmol/L (21.0-32.0); CREATININE 0.8 mg/dL (0.55-1.02); Calcium 8.9 mg/dL (8.5-10.1); Calculated LDL 162 mg/dL (<100); Chloride 103 mmol/L (98-107); Cholesterol 249 mg/dL (<200); Glucose 88 mg/dL (74-106); HDL Cholesterol 81 mg/dL (40-60); Sodium 140 mmol/L (136-145); Triglyceride 34 mg/dL (<150)
== END 2023-03-03 03:56 | disposition home or self-care (01) ==
PROVIDERS: PCP Nurse Practitioner Family; Visit Provider Nurse Practitioner Family
DX: E78.5 Hyperlipidemia, unspecified (principal); F41.8 Other specified anxiety disorders
CPT/HCPCS: 36415; 80053; 80061

== ENCOUNTER 2023-09-25 05:47 | Outpatient (CLI) | payer BC, MEDICAID, SELFPAY ==
[2023-09-25 13:48] LABS: ALT 24 U/L (14-59); AST 15 U/L (15-37); Albumin 4.1 g/dL (3.4-5.0); Alkaline Phosphatase 74 U/L (46-116); Anion Gap 6.3 mmol/L (3-11); BUN 18 mg/dL (7-18); Bilirubin, Total 0.4 mg/dL (0.2-1.0); CO2 31.7 mmol/L (21.0-32.0); CREATININE 0.8 mg/dL (0.55-1.02); Calcium 9.1 mg/dL (8.5-10.1); Chloride 103 mmol/L (98-107); Estimated GFR 86.96 (mL/min/1.73m2); Glucose 95 mg/dL (74-106); Potassium 4.5 mmol/L (3.5-5.1); Sodium 141 mmol/L (136-145); Total Protein 7.5 g/dL (6.4-8.2)
== END 2023-09-25 05:48 | disposition home or self-care (01) ==
PROVIDERS: PCP Nurse Practitioner Family; Visit Provider Nurse Practitioner Family
DX: E78.5 Hyperlipidemia, unspecified (principal)
CPT/HCPCS: 36415; 80053

== ENCOUNTER 2024-01-29 09:24 | Outpatient (CLI) | payer BC, MEDICAID, SELFPAY ==
--- NOTE | 2024-01-29 09:15 | RT.EKG_ITS ---
APPROVED REPORT Exam: Resting ECG Reason for Exam: palpitations Patient Location: O HR:59 bpm ECG Measurements Heart Rate 59 AXIS MO 155 P 44 QRSd 91 QRS 67 QT 430 T 55 QTc 426 Conclusion Sinus rhythm...normal P axis, V-rate 50- 99 Low voltage, extremity leads...all extremity leads <0.5mV Otherwise normal ECG
== END 2024-01-29 09:25 | disposition home or self-care (01) ==
LOC: DI.CM 09:24
PROVIDERS: PCP Nurse Practitioner Family; Visit Provider Nurse Practitioner Family
DX: R00.2 Palpitations (principal)
CPT/HCPCS: 93010

== ENCOUNTER 2024-02-13 10:30 | Outpatient (RCR) | payer BC, MEDICAID, SELFPAY ==
--- NOTE | 2024-02-13 10:30 | HOLTER_ITS ---
APPROVED REPORT Conclusion This a 48-hour Holter monitor Rhythm throughout was sinus with an average heart rate of 69. Minimum was 55, maximum 143 There were very rare isolated atrial and ventricular ectopic beats There was no atrial fibrillation, no high-grade AV block, no pauses greater than 3 seconds
== END 2024-03-01 23:59 | disposition home or self-care (01) ==
LOC: CARDOPNVT 10:30
PROVIDERS: PCP Nurse Practitioner Family; Visit Provider Internal Medicine Cardiovascular Disease
DX: R00.2 Palpitations (principal)
CPT/HCPCS: 93225; 93226

== ENCOUNTER 2024-05-20 02:54 | Outpatient (CLI) | payer BC, SELFPAY ==
[2024-05-20 09:45] LABS: ALT 25 U/L (14-59); AST 20 U/L (15-37); Albumin 4.2 g/dL (3.4-5.0); Alkaline Phosphatase 66 U/L (46-116); Anion Gap 5.9 mmol/L (3-11); BUN 16 mg/dL (7-18); Bilirubin, Total 0.48 mg/dL (0.2-1.0); CO2 32.1 mmol/L (21.0-32.0); CREATININE 0.9 mg/dL (0.55-1.02); Calcium 9.3 mg/dL (8.5-10.1); Calculated LDL 131 mg/dL (<100); Chloride 105 mmol/L (98-107); Cholesterol 246 mg/dL (<200); Estimated GFR 75.03 (mL/min/1.73m2); Glucose 91 mg/dL (74-106); HDL Cholesterol 107 mg/dL (40-60); Potassium 3.9 mmol/L (3.5-5.1); Sodium 143 mmol/L (136-145); Total Protein 7.5 g/dL (6.4-8.2); Triglyceride 44 mg/dL (<150)
== END 2024-05-20 02:55 | disposition home or self-care (01) ==
LOC: LBO 02:55
PROVIDERS: PCP Nurse Practitioner Family; Visit Provider Nurse Practitioner Family
DX: E78.5 Hyperlipidemia, unspecified (principal)
CPT/HCPCS: 36415; 80053; 80061

== ENCOUNTER 2024-08-13 00:03 | Outpatient (CLI) | payer OTHER, SELFPAY ==
--- NOTE | 2024-08-13 | DI.US_ITS ---
Exam(s) US BREAST RT LIMITED MG MAMMO DIAGNOSTIC BI US BREAST LT LIMITED EXAM: MG MAMMO DIAGNOSTIC BI and bilateral breast ultrasound limited CLINICAL HISTORY: breast lump, right,N63.0. TECHNIQUE: Craniocaudal and mediolateral oblique Full Field Digital Mammography views with Computer Aided Diagnosis followed by Tomosynthesis and bilateral limited breast ultrasound. COMPARISON: Comparison is made with prior examinations. FINDINGS: Mammography/Tomosynthesis: Masses/Architectural Distortion: There is a new 4-5 mm well-circumscribed nodule in the lower inner q uadrant of the left breast. No other suspicious nodules are seen. No areas of architectural distort ion are present. Microcalcifictions: No suspicious pleomorphic-type are seen. Skin Thickening/Nipple Retraction: None. Bilateral limited breast US: Echotexture: Normal appearance of the glandular tissue. Shadowing: No suspicious foci. Cyst: There is a well-circumscribed 4.7 mm simple cyst at the 8 o'clock position of the left breast 2 cm from the nipple. This would correspond to the mammographic abnormality. At the 8 o'clock positi on of the right breast in the area of palpable concern, there is a subcutaneous 0.2 cm nodule most co nsistent with a sebaceous cyst. Solid lesions: None seen. Ductal dilation: None. IMPRESSION: 1. No evidence of malignancy is noted. 2. Unless there is more urgent need, follow-up screening mammography is recommended, as per [place] [employer] guidelines. 3. The findings were discussed with the patient on the date of the examination. BI-RADS Category 2 - Benign Findings Breast Density - Category B - Scattered areas of fibroglandular density Breast density Category C or D implies that the patient has dense breast tissue. Dense breast tissue can make it harder to find cancer on a mammogram. Dense breast tissue is also associated with an incr eased risk of breast cancer. This information about the result of the mammogram report was provided to the patient to raise their awareness. Use this report when you speak with the patient about their risks for breast cancer, which includes their family history. At that time, you may recommend additional screening tests (Ultrasoun d or MRI) as these tests may add significant information. A negative radiographic report should not delay biopsy if a dominant or clinically suspicious mass is present. Up to ten percent of cancers are not identified on mammography. A negative report may reinforce clinical impression. Adenosis and dense breasts may obscure an underlying neoplasm. False positive reports average 6 to 10%. Patient will receive a letter notifying them of these results.
== END 2024-08-13 00:23 ==
LOC: DI 00:03
PROVIDERS: PCP Nurse Practitioner Family; Visit Provider Obstetrics & Gynecology
DX: N62 Hypertrophy of breast (principal); Z12.31 Encounter for screening mammogram for malignant neoplasm of breast
CPT/HCPCS: 76642; 77062; 77066; G0279

== ENCOUNTER 2024-11-15 00:39 | Outpatient (CLI) | payer BC, SELFPAY ==
[2024-11-15 13:09] LABS: Calculated LDL 123 mg/dL (<100); Cholesterol 221 mg/dL (<200); HDL Cholesterol 88 mg/dL (>or=50); Triglyceride 50 mg/dL (<150)
== END 2024-11-15 00:40 | disposition home or self-care (01) ==
PROVIDERS: PCP Nurse Practitioner Family; Visit Provider Nurse Practitioner Family
DX: E78.5 Hyperlipidemia, unspecified (principal)
CPT/HCPCS: 36415; 80061

== ENCOUNTER 2024-12-24 00:26 | Outpatient (CLI) | payer BC, SELFPAY ==
--- NOTE | 2024-12-24 07:45 | DI.RAD_ITS ---
Exam(s) XR KNEE LT 3V AP,LAT,EH EXAM: XR KNEE LT 3V AP,LAT,HE CLINICAL HISTORY: atraumatic, worsening bilat knee pain,m25.561,m25.562. TECHNIQUE: 2D digital imaging was performed. Three views. COMPARISON: CR XR KNEE RT 3V AP,LAT,EH from 06/28/2020 FINDINGS: BONES: No acute fracture is present. No bony destructive lesion is seen. JOINTS: The joint spaces are maintained. Minimal periarticular spurring. The knee is normally aligned. No joint effusion is seen. SOFT TISSUE: Normal. IMPRESSION: Minimal degenerative changes of the left knee. DATA REPOSITORY: RADIATION DOSE DELIVERED:
--- NOTE | 2024-12-24 07:45 | DI.RAD_ITS ---
Exam(s) XR KNEE RT 3V AP,LAT,EH EXAM: XR KNEE RT 3V AP,LAT,EH CLINICAL HISTORY: atraumatic, worsening bilat knee shirley,m25.562,m25.561. TECHNIQUE: 2D digital imaging was performed. Three views. COMPARISON: CR XR KNEE LT 3V AP,LAT,EH from 12/24/2024 FINDINGS: BONES: No acute fracture is present. No bony destructive lesion is seen. JOINTS: The joint spaces are maintained. Minimal periarticular spurring. The knee is normally aligned. No joint effusion is seen. SOFT TISSUE: Normal. IMPRESSION: Minimal degenerative changes of the right knee. DATA REPOSITORY: RADIATION DOSE DELIVERED:
== END 2024-12-24 00:46 ==
LOC: DI 00:26
PROVIDERS: PCP Nurse Practitioner Family; Visit Provider Nurse Practitioner Family
DX: M25.561 Pain in right knee (principal); M25.562 Pain in left knee
CPT/HCPCS: 73562

== ENCOUNTER 2025-01-18 14:12 | Outpatient (CLI) | payer BC, SELFPAY ==
--- NOTE | 2025-01-18 13:10 | DI.RAD_ITS ---
Exam(s) XR KNEES MERCHANT ONLY EXAM: XR KNEES MERCHANT ONLY INDICATION: BILATERAL KNEE PAIN. COMPARISON: CR XR KNEE RT 3V AP,LAT,EH from 12/24/2024 CR XR KNEE LT 3V AP,LAT,HE from 12/24/2024 TECHNIQUE: 2D digital imaging was performed. Merchant views of both knees. FINDINGS: Minimal joint space narrowing of the left patellofemoral joint. Mild lateral patellar deviation on the left. Mild periarticular spurring bilaterally. IMPRESSION: Mild degenerative changes of the left lateral patellofemoral joint. DATA REPOSITORY: RADIATION DOSE DELIVERED:
== END 2025-01-18 14:13 | disposition home or self-care (01) ==
LOC: DIORS 14:12
PROVIDERS: PCP Nurse Practitioner Family; Visit Provider Physician Assistant
DX: M25.561 Pain in right knee (principal); M25.562 Pain in left knee; M22.2X2 Patellofemoral disorders, left knee; S83.012A Lateral subluxation of left patella, initial encounter; M25.70 Osteophyte, unspecified joint
CPT/HCPCS: 73565

== ENCOUNTER 2025-02-27 15:48 | Emergency (ER) | payer BC, SELFPAY ==
[2025-02-27 15:59] VITALS: BP 133/84; PULSE 82; RESP 16; TEMP 37; O2SAT 97
[2025-02-27 16:03] VITALS: BP 133/84; PULSE 82; RESP 16; TEMP 37; O2SAT 97
--- NOTE | 2025-02-27 16:23 | ED.GENADUL_ITS ---
Discharge Plan Disposition Patient Disposition: Home Condition: Good Discharge Details Clinical Impression: UTI (urinary tract infection), Constipation Primary Care Provider: Alexis Woody ED Provider: Melissa Tobar Home Meds and New Rx's Prescriptions: New cephalexin 500 mg capsule 500 mg PO BID Qty: 10 0RF Continued atorvastatin [Lipitor] 20 mg tablet 20 mg PO DAILY lamotrigine [Lamictal] 25 MG tablet 75 mg PO 3 tabs daily clonazepam 0.5 mg tablet,disintegrating 0.5 mg PO Q8H PRN Qty: 10 0RF phenazopyridine [Pyridium] 200 mg tablet 200 mg PO TID PRN (Reason: pain) Qty: 6 4RF pantoprazole 40 mg tablet,delayed release (DR/EC) 40 mg PO DAILY Qty: 90 4RF estradiol 0.01 % (0.1 mg/gram) cream See Rx Instructions .ROUTE .COMPLEX Qty: 43 3RF Dose Instruction: INSERT 1 APPLICATORFUL VAGINALLY TWICE A WEEK Rx Instructions: INSERT 1 APPLICATORFUL VAGINALLY TWICE A WEEK cyclobenzaprine 10 mg tablet 10 mg PO TID PRN nitrofurantoin macrocrystal 50 mg capsule 50 mg PO .COMPLEX PRN (Reason: UTI prevention) Rx Instructions: 50 mg orally after intercourse; must administer with a meal/food PRN; polyethylene glycol 3350 [Miralax] 17 gram/dose powder 17 g PO DAILY PRN escitalopram oxalate [Lexapro] 20 mg Tablet 20 mg PO DAILY Discharge Instructions Additional Instructions: Lease follow-up with your team (women's wellness, PCP, or urology) for reevaluation if you feel your symptoms are not fully improved with treatment. Your urinalysis is concerning for UTI, with white blood cells noted in the urine. This will be sent for culture, results should be available in the next couple of days. I did review previous urine culture results. You do not have any history of resistance. You will be treated with cephalexin 500 mg twice a day for 7 days to treat UTI. I recommend that you stay well-hydrated, drinking plenty of fluid throughout the day. For discomfort you may use ibuprofen 600 mg every 8 hours as needed. For constipation, recommend you use MiraLAX 1 capful 1-2 times daily in the full 8 ounces of water, juice, or other liquid. Continue to use until you have regular soft stools. Return to emergency care if you develop new fevers, significant abdominal pain, new back pain, uncontrollable vomiting, inability to urinate/fully empty your bladder, or if you are very worried you need to be rechecked again immediately. Referrals: Alexis Woody NP [Primary Care Provider, Medicine] HPI General Date/Time Provider Initiated Documentation: 02/27/25 15:51 . HPI Narrative: Madelyn is a 54-year-old female who presents to the emergency department today for evaluation of dysuria, suprapubic discomfort/lower back discomfort, and concern for UTI. Symptoms began this morning, initially thought to be a flare-up of interstitial cystitis. Reports burning sensation in labial area/warmth, chills without fever, and lower back ache. Denies fever, nausea/vomiting, change in p.o. intake, unusual vaginal discharge, new sexual partners (he is in a monogamous relationship). Initially attributed symptoms to interstitial cystitis, took a dose of Macrobid and Azo with no improvement of symptoms. Thinks this may be a UTI attributed to recent sexual intercourse with . Suspects constipation contributing to discomfort, experiencing hard stools for past week and a half due to inadequate water intake. Last bowel movement yesterday, no blood in stool or change in stool color. Used MiraLAX in past, not recently. Denies significant past medical history other than interstitial cystitis, denies heart disease, lung disease, diabetes, immunocompromise. History of 3 C- sections, no other gynecologic surgeries/issues. No recent history of chlamydia. Has not taken any Tylenol ibuprofen today. Related Data Home Medications ?Medication ?Instructions ?Recorded ?Confirmed lamotrigine 25 mg tablet (Lamictal) 75 mg PO 3 tabs da miley 02/15/15 02/27/25 escitalopram oxalate 20 mg tablet 20 mg PO DAILY 03/0202/27/25 (Lexapro) clonazepam 0.5 mg disintegrating 0.5 mg PO Q8H PRN #10 tab-caps 12/10/22 02/27/25 tablet phenazopyridine 200 mg tablet 200 mg PO TID PRN pain # 6 tab-caps 04/04/23 02/27/25 (Pyridium) pantoprazole 40 mg tablet,delayed 40 mg PO DAILY #90 t abs 01/30/24 02/27/25 release atorvastatin 20 mg tablet (Lipitor) 20 mg PO DAILY 02/27/25 estradiol 0.01% (0.1 mg/gram) See Rx Instructions .Oscar te 02/08/25 02/27/25 vaginal cream .COMPLEX #43 grams cephalexin 500 mg capsule 500 mg PO BID #10 caps 02/27 cyclobenzaprine 10 mg tablet 10 mg PO TID PRN 02/27/25 02/27/25 nitrofurantoin macrocrystal 50 mg 50 mg PO .COMPLEX AL N UTI 02/27/25 02/27/25 capsule prevention polyethylene glycol 3350 17 17 g PO DAILY PRN 02/27/25 02/27/25 gram/dose oral powder (Miralax) Previous Rx's ?Medication ?Instructions ?Recorded clonazepam 0.5 mg disintegrating 0.5 mg PO Q8H PRN #10 tab-caps 12/10/22 tablet phenazopyridine 200 mg tablet 200 mg PO TID PRN pain # 6 tab-caps 04/04/23 (Pyridium) pantoprazole 40 mg tablet,delayed 40 mg PO DAILY #90 t abs 01/30/24 release estradiol 0.01% (0.1 mg/gram) See Rx Instructions .Oscar te 02/08/25 vaginal cream .COMPLEX #43 grams cephalexin 500 mg capsule 500 mg PO BID #10 caps 02/27 Allergies Allergy/AdvReac Type Severity Reaction Status Date / Time erythromycin base AdvReac headache/na Verified 02/27/25 15:56 usea Sulfa (Sulfonamide AdvReac nausea/head Verified 02/27/25 15:56 Antibiotics) ache General Stated Complaint: Abd Prob KIAH: 4 Exam Narrative Exam Narrative: General Appearance: Normal. Patient is alert and oriented, no acute distress Vital signs: Within normal limits. Respiratory: Easy work of breathing, lung sounds clear bilaterally Cardiac: Heart sounds, regular rate and rhythm Gastrointestinal: Abdomen is soft, nondistended, nontender to palpation. Normoactive bowel sounds. No CVA tenderness. Skin: Warm and dry, no rash. Psychiatric: Normal. Course Vital Signs Vital signs: Vital Signs Temperature 37.0 C 02/27/25 15:59 Pulse 82 02/27/25 15:59 Respiratory Rate 16 02/27/25 15:59 Blood Pressure 133/84 02/27/25 15:59 Pulse Oximetry 97 02/27/25 15:59 Temperature 37.0 C 02/27/25 16:03 Temperature Source Oral 02/27/25 16:03 Pulse 82 02/27/25 16:03 Respiratory Rate 16 02/27/25 16:03 Blood Pressure 133/84 02/27/25 16:03 Blood Pressure Position Sitting 02/27/25 16:03 Pulse Oximetry 97 02/27/25 16:03 Oxygen Delivery Method Room Air 02/27/25 16:03 Oxygen Flow Rate 0 02/27/25 16:03 Pain Level 8 02/27/25 16:03 Lab/Test Results Lab/Test Results: Laboratory Tests Range/Units 02/27/25 02/27/25 02/27/25 16:04 17:04 19:04 WBC Cancelled RBC Cancelled Hgb Cancelled Hct Cancelled MCV Cancelled MCH Cancelled MCHC Cancelled RDW Cancelled Plt Count Cancelled MPV Cancelled Immature Gran % Cancelled Neutrophils % Cancelled Band Neutrophils % Cancelled Lymphocytes % Cancelled Atypical Lymphs % Cancelled Monocytes % Cancelled Eosinophils % Cancelled Basophils % Cancelled Metamyelocytes % Cancelled Myelocytes % Cancelled Promyelocytes % Cancelled Other Cells % Cancelled Nucleated RBC % Cancelled Absolute Neutrophils Cancelled Absolute Lymphocytes Cancelled Absolute Monocytes Cancelled Absolute Eosinophils Cancelled Absolute Basophils Cancelled RBC Morphology Cancelled Polychromasia Cancelled Hypochromasia Cancelled Poikilocytosis Cancelled Basophilic Stippling Cancelled Anisocytosis Cancelled Microcytosis Cancelled Macrocytosis Cancelled Spherocytes Cancelled Tear Drop Cells Cancelled Ovalocytes Cancelled Stomatocytes Cancelled [place] Bodies Cancelled Yaima Cells/Echinocytes Cancelled Acanthocytes (Spur) Cancelled Schistocytes Cancelled Sodium Cancelled Potassium Cancelled Chloride Cancelled Carbon Dioxide Cancelled Anion Gap Cancelled BUN Cancelled Creatinine Cancelled Est GFR (CKD-EPI 2020) Cancelled Glucose Cancelled Calcium Cancelled Magnesium Cancelled Total Bilirubin Cancelled AST Cancelled ALT Cancelled Alkaline Phosphatase Cancelled Troponin I Cancelled Cancelled Cancelled Total Protein Cancelled Albumin Cancelled POC- Test(urine) Negative Medical Decision Making 54-year-old female with lower abdominal pain and burning sensation, suspecting UTI. History of interstitial cystitis with similar symptoms during flare-ups. Differential Diagnosis includes was not limited to: Interstitial cystitis, UTI, localized irritation, bladder stone, gynecologic or genitourinary neoplasm, constipation, diverticulitis. Low suspicion for STI. Patient does not meet sepsis criteria, no red flags concerning for systemic infection or obstructive process requiring blood work or emergent diagnostic imaging at this time. ED Course: - Urinalysis ordered. - test negative. - Ibuprofen administered for pain. Final Assessment: Lower abdominal pain with burning sensation, likely UTI. Constipation with hard stools, likely due to inadequate water intake. I independently interpreted the following tests: hCG negative. UA notable for 10-20 white blood cells, culture pending. History and presentation consistent with UTI. I did review urine culture results from 2022, patient has pansensitive E. coli. Will treat with cephalexin as she has already taken a dose of Macrobid. Clinical Impression: - UTI - Constipation Disposition: - Reviewed discharge instructions with patient, including use of antibiotics, MiraLAX, and symptomatic management. Recommend close follow-up with PCP or other providers (urology, women's wellness) as needed if symptoms do not fully resolved. Educated on red flags indicating need for return to emergency care. Patient voices agreement with plan of care Patient Education: Increase water intake. Use MiraLAX for constipation. Follow up with primary care provider and urologist if symptoms persist or worsen. Patient consented to the use of CEFERINO Quality:SDOH Health Related Social Needs: Health related social needs details N/A PFSH All Active Problems (Updated 02/27/25 @ 16:54 by Melissa Mario) UTI (urinary tract infection) (Acute) Bilateral patellofemoral syndrome (Acute) Degenerative joint disease of right knee (Acute) Mild Left knee DJD (Acute) Mild Bilateral knee pain (Acute) Breast lump (Acute) Depression (Acute 02/15/15) stable on SSRI. had increased sx after cervical neck fusion. Improved with Lamictal. Frequency of micturition (Acute 06/24/16) Inconclusive mammogram (Acute 01/16/16) L breast density. 6mo F/U recommended. Next mammogram due03/2017. Interstitial cystitis (Acute 12/29/17) followed by urology. Nocturia (Acute 06/24/16) Anxiety associated with depression (Acute) History of IBS (Acute) Encounter for screening colonoscopy (Acute) Vaginal dryness, menopausal (Chronic ~10/2018) 2019. Vagifem. 2021. Estradiol crream. 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 Microcytic anemia 01/2015. Resolved with supplemental iron. Menorrhagia 01/2015 resulting in anemia. 01/2016 bleeding has improved. Nl pelvic u/s. Surgical History Hx of section Hx of section History of esophagogastroduodenoscopy (EGD) (~01/2021) Hx of colonoscopy Family History Mother , dementia at age 72. Myocardial infarction Alcohol use disorder Hyperlipidemia Heart disease Memory loss Father Myocardial infarction Brother Myocardial infarction Hyperlipidemia Substance use disorder Heart disease Sister Alcohol use disorder Hyperlipidemia Depression Paternal Grandmother Alcohol use disorder Social History Smoking/Tobacco Use Status: Former Tobacco Use tobacco type: cigarettes Quit Date: 06/02/18 Tobacco: How many years used: 10 Smoking risk assessment performed?: Yes Alcohol Intake: former Drug use: Current Sobriety Substance use type: does not use Counseling provided: other Details: Sober 25 years, occasionally an e cigarette Caregiver/Support person: No Household members: family, children and other Details: [place] [facility] [place] Housing: other Details: [employer] [facility] [employer] [facility] Number of Children: 3 Communication Needs: None Education Level: college Details: online student for [employer] masters. 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 Pets and animals: Yes Pets and animals: dog(s) and farm animals Sexually active: Yes Do you think of yourself as: straight/heterosexual Current gender identity: female What is your relationship status?: refused to answer How often do you talk on the phone with friends or family?: decline to answer How often do you get together with friends or relatives?: decline to answer How often do you attend mandaen or mosque services?: decline to answer Do you belong to any clubs or organized social groups?: decline to answer Panel score (0-1 are the most socially isolated patients): 0 What type of physical activity do you participate in: walking Duration: 15-30 minutes/day Frequency: 3-4 times per week Marilu/Confucianism: Samaritan Special marilu needs: No Seatbelt use: always Drive intox or ride w/intox 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 is sponsor for several new members. Female Reproductive History Menstrual control method: none Menopause type: natural (2019.) History History 6 Para 3 Hx # Term Pregnancies 3 Multiple births Hx # Pregnancies Ectopic pregnancies AB induced Hx Number of Living Children AB spontaneous
[2025-02-27 16:37] LABS: C & S Indicated? Yes; RBC 0-2 HPF (0-2)
[2025-02-27] MEDS: Ibuprofen 600 MG TAB PO (16:41)
[2025-02-27] MEDS: Cephalexin 500 MG CAP, 4 CAPS/BTL PO (17:04)
--- NOTE | 2025-03-01 17:09 | NUR.NOTE ---
Accessed Pt chart to document antibiotics given on the Specimen Report. Specimen Report was given to providers.
== END 2025-02-27 17:10 | disposition home or self-care (01) ==
LOC: ER 17:05
PROVIDERS: Emergency Provider Nurse Practitioner Family; PCP Nurse Practitioner Family
DX: N39.0 Urinary tract infection, site not specified (principal); M54.50 Low back pain, unspecified
CPT/HCPCS: 99283 ×2; 81025; 80053; 81003; 81015; 83735; 84484; 85025; 87086

== ENCOUNTER 2025-03-07 11:17 | Outpatient (REF) | payer BC, SELFPAY | END 2025-03-07 11:18 | disposition home or self-care (01) | LOC: LBN 11:17 | PROVIDERS: PCP Nurse Practitioner Family; Visit Provider Nurse Practitioner Gerontology | DX: N39.0 Urinary tract infection, site not specified (principal) | CPT/HCPCS: 87086 ==

== ENCOUNTER → 2025-05-12 01:08 | Outpatient (CLI) | payer BC, SELFPAY ==
--- NOTE | 2025-05-12 14:35 | DI.MRI_ITS ---
Exam(s) MR LOWER JOINT LT WO EXAM: MR LOWER JOINT LT WO CLINICAL HISTORY: PAIN,lt knee djd,patellofemoral syndrome,oa,m22,2x2,m17.12 TECHNIQUE: Multiplanar multisequence MRI of the knee was performed. COMPARISON: CR XR KNEE RT 3V AP,LAT,EH from 12/24/2024 CR XR KNEE LT 3V AP,LAT,EH from 12/24/2024 CR XR KNEES MERCHANT ONLY from 01/18/2025 FINDINGS: EFFUSION: There is a small joint effusion. The fluid is predominantly in the lateral aspect of the suprapatellar bursa, just medial to the iliotibial band. There is also a Cerna cyst in the medial popliteal fossa which measures 4 cm craniocaudal 1.3 cm AP by 1 cm its widest. This Cerna cyst is non septated, nonruptured, and does not contain loose bodies nor debris. MARROW:There is no evidence of fracture or bone contusion signal in the femoral condyles and tibial plateau nor abnormal signal within the fibular head and neck. PATELLOFEMORAL COMPARTMENT: The quadriceps tendon is intact. There is very mild increased signal in the superior aspect of the patellar ligament but no significant tear. There is significant chondromalacia patella with advanced retropatellar cartilage thinning. This is full-thickness thinning over the entire lateral facet and there are degenerative subarticular cysts in the posterior patella as well as some or osseous edema in the patella inferiorly. There is also advanced narrowing of the retropatellar cartilage over the medial facet but slightly less so. There is also significant cartilage loss over the anterior aspect of the femoral condyles trochlear level, most prominent laterally within the lateral aspect of the patellofemoral compartment. There is also subarticular bone edema at this level in the anterior aspect of the lateral femoral condyle. CRUCIATE LIGAMENTS: The anterior cruciate ligament is intact.The posterior cruciate ligament is intact. MEDIAL COMPARTMENT/MEDIAL MENISCUS: There is signal abnormality in the posterior horn of the medial meniscus. This does contact the inferior articular surface in the lateral 3rd consistent with an element of oblique tear. Meniscal root is intact. There is no meniscocapsular separation. The anterior horn of the medial meniscus appears intact.. There are no chondral defects, osteochondral defects, subarticular marrow edema, nor osteophytes evident. MEDIAL COLLATERAL LIGAMENT: There is some mild sprain signal evident in the superior aspect of the medial collateral ligament. There is no high-grade tear of this structure. No significant meniscocapsular separation. LATERAL COMPARTMENT/LATERAL MENISCUS: There is no evidence of lateral meniscal tear.There is a small subarticular focus of signal abnormality in the posterior weight-bearing surface of the lateral femoral condyle. There is no formed osteochondral defect at this level. There does not appear to be significant focal cartilage loss at this level. There are no osteophytes in the lateral compartment. ILIOTIBIAL BAND: Intact LATERAL COLLATERAL LIGAMENT COMPLEX: The fibular collateral ligament is intact. The biceps femoris tendon is intact.Popliteus muscle and tendon are intact. IMPRESSION: 1. There is advanced chondromalacia of the retropatellar cartilage. There is centrally full-thickness cartilage loss of the retropatellar cartilage, more prominent over the lateral compartment than medial compartment areas with intraosseous edema and degenerative subarticular cysts in the posterior patella over this region. There is also corresponding cartilage loss in the anterior aspect of this region on the anterior aspect of the lateral femoral condyle. There is also small amount of bone edema in the subjacent to the lateral femoral condyle. 2. There is a small undersurface oblique tear in the posterior horn of the medial meniscus in the lateral 3rd.. No other meniscal tears 3. There are no cruciate ligament tears. 4. There is some sprain signal in the superior aspect of the medial collateral ligament but no high-grade tear of this structure. The 3 components of the lateral collateral ligament complex are intact. 5. Small amount of increased joint fluid and there is also a 4 cm length Cerna cyst in the popliteal fossa. DATA REPOSITORY:
== END ==
LOC: DI 01:09
PROVIDERS: PCP Nurse Practitioner Family; Visit Provider Student in an Organized Health Care Education/Training Program
DX: M17.12 Unilateral primary osteoarthritis, left knee (principal); M22.2X2 Patellofemoral disorders, left knee
CPT/HCPCS: 73721